=== PATIENT | female | born 1955 | race Caucasian/White ===

== ENCOUNTER 2019-08-07 12:16 | Observation (INO) | payer MEDICARE ==
[2019-08-07 13:13] LABS: Basophils # (A) 0.1 k/uL (0-0.2); Basophils % (A) 1 %; Eosinophils # (A) 0.2 k/uL (0-0.7); Eosinophils % (A) 2 %; HCT 37.5 % (34.0-46.0); HGB 12.1 gm/dL (11.4-16.0); Hypochromasia Slight; Lymphocytes # (A) 2.4 k/uL (1.0-4.8); Lymphocytes % (A) 29 %; MCH 26.6 pg (25.0-35.0); MCHC 32.3 g/dL (31.0-37.0); MCV 82.3 fL (80.0-100.0); Monocytes # (A) 0.4 k/uL (0-1.0); Monocytes % (A) 4 %; Neutrophils # (A) 5.1 k/uL (1.3-7.7); Neutrophils % (A) 62 %; Platelet Count 450 k/uL (150-450); RBC 4.55 m/uL (3.80-5.40); RDW 15.1 % (11.5-15.5); WBC 8.3 k/uL (3.8-10.6)
--- NOTE | 2019-08-07 13:20 | XR ---
EXAMINATION TYPE: XR chest 2V DATE OF EXAM: 08/07/2019 COMPARISON: NONE HISTORY: Chest pain. TECHNIQUE: Frontal and lateral views of the chest are obtained. FINDINGS: Overlying EKG leads. Slightly elevated anterior aspect right hemidiaphragm. There is no foc al air space opacity, pleural effusion, or pneumothorax seen. The cardiac silhouette size is within normal limits. Cholecystectomy clips are noted. The osseous structures are intact. IMPRESSION: No acute process identified.
[2019-08-07 13:24] LABS: African American GFR (CKD) >90 (>60 ml/min/1.73 sqM); Albumin 4.7 g/dL (3.5-5.0); Anion Gap 12 mmol/L; Blood Urea Nitrogen 14 mg/dL (7-17); Calcium 10.3 mg/dL (8.4-10.2); Carbon Dioxide 26 mmol/L (22-30); Chloride 97 mmol/L (98-107); Glucose 178 mg/dL (74-99); Magnesium 1.8 mg/dL (1.6-2.3); Non-African American GFR(CKD) >90 (>60 ml/min/1.73 sqM); Sodium 135 mmol/L (137-145); Total Bilirubin 0.5 mg/dL (0.2-1.3); Total Protein 7.3 g/dL (6.3-8.2)
[2019-08-07 13:25] LABS: ALT 21 U/L (9-52); AST 30 U/L (14-36); Potassium 4.3 mmol/L (3.5-5.1)
[2019-08-07 13:26] LABS: Alkaline Phosphatase 76 U/L (38-126)
--- NOTE | 2019-08-07 13:33 | ED ---
General Adult HPI - General Chief complaint: Chest Pain Stated complaint: chest pain Time Seen by Provider: 08/07/19 12:30 Source: patient, RN notes reviewed, old records reviewed Mode of arrival: wheelchair Limitations: no limitations - History of Present Illness Initial comments: 63-year-old female presents for evaluation of anterior chest pain. Pain is been present since 1 AM. Patient reports a history of fibromyalgia and states that when the weather changes she does get diffuse pain including chest pain. She is here with concerns that this may be fibromyalgia versus her heart. She denies dyspnea. Denies cough. Denies abdominal pain nausea vomiting or diaphoresis. She does report some pain between her scapula. She has a history of diabetes, no history of hypertension. Pain is been constant since 1 AM this morning she seeking medical attention at 12:30. She is a nonsmoker. She does have a family history of coronary artery disease including a mother at age 45. - Related Data Home Medications Medication Instructions Recorded Confirmed ALPRAZolam [ALPRAZolam XR] 1 mg PO DIRECTED 02/17/16 02/17/16 Amitriptyline HCl [Elavil] 50 mg PO HS 02/17/16 02/17/16 Atorvastatin [Lipitor] 40 mg PO DAILY 02/17/16 02/17/16 Cetirizine HCl [Zyrtec Chewable] 10 mg PO DAILY 02/17/16 02/17/16 Citalopram Hydrobromide [CeleXA] 20 mg PO DAILY 02/17/16 02/17/16 Fluticasone Nasal [place] [Flonase 1 nsinhaler INHALATION DIRECTED 02/17/16 02/17/16 Nasal [place]] Gabapentin [Neurontin] 300 mg PO TID 02/17/16 02/17/16 HYDROcodone/APAP 5-325MG [[place] 1 tab PO BID 02/17/16 02/17/16 5-325] Hydrochlorothiazide 12.5 mg PO DAILY 02/17/16 02/17/16 Levothyroxine Sodium [Synthroid] 50 mcg PO DAILY 02/17/16 02/17/16 metFORMIN HCL [Glucophage] 500 mg PO BID 02/17/16 02/17/16 Allergies Allergy/AdvReac Type Severity Reaction Status Date / Time No Known Allergies Allergy Unverified 02/17/16 09:31 Review of Systems ROS Statement: Those systems with pertinent positive or pertinent negative responses have been documented in the HPI. ROS Other: All systems not noted in ROS Statement are negative. Past Medical History Past Medical History: Diabetes Mellitus, Fibromyalgia, Hyperlipidemia, Thyroid Disorder Additional Past Medical History / Comment(s): HERNIATED DISC IN NECK AND BACK FATTY LIVER NEUROPATHY History of Any Multi-Drug Resistant Organisms: None Reported Past Surgical History: Appendectomy, Hysterectomy, Tonsillectomy Additional Past Surgical History / Comment(s): LEFT WRIST SURGERY BILATERAL ELBOW SURGERY BREAST SURGERY Past Anesthesia/Blood Transfusion Reactions: No Reported Reaction Past Psychological History: Anxiety Smoking Status: Never smoker Past Alcohol Use History: None Reported Past Drug Use History: None Reported General Exam Limitations: no limitations General appearance: alert, in no apparent distress Head exam: Present: atraumatic, normocephalic Eye exam: Present: normal appearance, PERRL ENT exam: Present: normal exam Neck exam: Present: normal inspection. Absent: tenderness, meningismus Respiratory exam: Present: normal lung sounds bilaterally. Absent: respiratory distress, wheezes Cardiovascular Exam: Present: regular rate, normal rhythm GI/Abdominal exam: Present: soft. Absent: distended, tenderness Extremities exam: Present: normal inspection, normal capillary refill. Absent: pedal edema Neurological exam: Present: alert, oriented X3 Psychiatric exam: Present: normal affect, normal mood Skin exam: Present: warm, dry, intact. Absent: cyanosis, diaphoretic Course Vital Signs 08/07/19 12:18 Temperature 98.0 F Pulse Rate 74 Respiratory 18 Rate Blood Pressure 115/64 O2 Sat by Pulse 99 Oximetry EKG Findings - EKG Comments: EKG Findings:: EKG: Normal sinus rhythm, voltage criteria for LVH age undetermined possible anterior infarct, no ST segment elevation, rate of 98, HI interval 176, QRS duration 82, QTC 428. Medical Decision Making - Medical Decision Making 63-year-old female presenting with anterior chest pain. Pain has mostly atypical features. Patient's has EKG which is sinus rhythm with no ST segment elevation. She has normal CBC, normal CMP, d-dimer and troponin are both negative. Chest x-ray negative for acute cardiac pulmonary disease. Patient has significant risk factors including diabetes and a strong family history in her mother of coronary artery disease in her early 40s. Given her risk factor she will be kept in observation for serial cardiac enzymes, telemetry, and cardiology consultation. Case is discussed with the admitting physician Dr. Olsen - Lab Data Result diagrams: 08/07/19 12:59 08/07/19 12:59 Lab Results 08/07/19 08/07/19 08/07/19 Range/Units 12:59 12:59 12:59 WBC 8.3 (3.8-10.6) k/uL RBC 4.55 (3.80-5.40) m/uL Hgb 12.1 (11.4-16.0) gm/dL Hct 37.5 (34.0-46.0) % MCV 82.3 (80.0-100.0) fL MCH 26.6 (25.0-35.0) pg MCHC 32.3 (31.0-37.0) g/dL RDW 15.1 (11.5-15.5) % Plt Count 450 (150-450) k/uL Neutrophils % 62 % Lymphocytes % 29 % Monocytes % 4 % Eosinophils % 2 % Basophils % 1 % Neutrophils # 5.1 (1.3-7.7) k/uL Lymphocytes # 2.4 (1.0-4.8) k/uL Monocytes # 0.4 (0-1.0) k/uL Eosinophils # 0.2 (0-0.7) k/uL Basophils # 0.1 (0-0.2) k/uL Hypochromasia Slight PT 9.6 (9.0-12.0) sec INR 0.9 (<1.2) APTT 22.4 (22.0-30.0) sec D-Dimer 0.34 (<0.60) mg/L FEU Sodium 135 L (137-145) mmol/L Potassium 4.3 (3.5-5.1) mmol/L Chloride 97 L (98-107) mmol/L Carbon Dioxide 26 (22-30) mmol/L Anion Gap 12 mmol/L BUN 14 (7-17) mg/dL Creatinine 0.66 (0.52-1.04) mg/dL Est GFR (CKD-EPI)AfAm >90 (>60 ml/min/1.73 sqM) Est GFR (CKD-EPI)NonAf >90 (>60 ml/min/1.73 sqM) Glucose 178 H (74-99) mg/dL Calcium 10.3 H (8.4-10.2) mg/dL Magnesium 1.8 (1.6-2.3) mg/dL Total Bilirubin 0.5 (0.2-1.3) mg/dL AST 30 (14-36) U/L ALT 21 (9-52) U/L Alkaline Phosphatase 76 (38-126) U/L Troponin I (0.000-0.034) ng/mL Total Protein 7.3 (6.3-8.2) g/dL Albumin 4.7 (3.5-5.0) g/dL 08/07/19 Range/Units 12:59 WBC (3.8-10.6) k/uL RBC (3.80-5.40) m/uL Hgb (11.4-16.0) gm/dL Hct (34.0-46.0) % MCV (80.0-100.0) fL MCH (25.0-35.0) pg MCHC (31.0-37.0) g/dL RDW (11.5-15.5) % Plt Count (150-450) k/uL Neutrophils % % Lymphocytes % % Monocytes % % Eosinophils % % Basophils % % Neutrophils # (1.3-7.7) k/uL Lymphocytes # (1.0-4.8) k/uL Monocytes # (0-1.0) k/uL Eosinophils # (0-0.7) k/uL Basophils # (0-0.2) k/uL Hypochromasia PT (9.0-12.0) sec INR (<1.2) APTT (22.0-30.0) sec D-Dimer (<0.60) mg/L FEU Sodium (137-145) mmol/L Potassium (3.5-5.1) mmol/L Chloride (98-107) mmol/L Carbon Dioxide (22-30) mmol/L Anion Gap mmol/L BUN (7-17) mg/dL Creatinine (0.52-1.04) mg/dL Est GFR (CKD-EPI)AfAm (>60 ml/min/1.73 sqM) Est GFR (CKD-EPI)NonAf (>60 ml/min/1.73 sqM) Glucose (74-99) mg/dL Calcium (8.4-10.2) mg/dL Magnesium (1.6-2.3) mg/dL Total Bilirubin (0.2-1.3) mg/dL AST (14-36) U/L ALT (9-52) U/L Alkaline Phosphatase (38-126) U/L Troponin I <0.012 (0.000-0.034) ng/mL Total Protein (6.3-8.2) g/dL Albumin (3.5-5.0) g/dL Disposition Clinical Impression: Chest pain Disposition: ADMITTED IP TO THIS HOSP Condition: Stable Is patient prescribed a controlled substance at d/c from ED?: No Referrals: Nilton Davis DO [Primary Care Provider] - 1-2 days Decision to Admit Reason: Admit from EC Decision Date: 08/07/19 Decision Time: 14:12
[2019-08-07 13:39] LABS: D-Dimer 0.34 mg/L FEU (<0.60); INR 0.9 (<1.2); Partial Thromboplastin Time 22.4 sec (22.0-30.0); Prothrombin Time 9.6 sec (9.0-12.0)
[2019-08-07] MEDS ORDERED: ASPIRIN 325 MG TAB PO STA (14:06)
[2019-08-07] MEDS ORDERED: MORPHINE SULFATE 4 MG/ML SYRINGE IVP STA (14:06)
[2019-08-07] MEDS ORDERED: ONDANSETRON 4 MG/2 ML VIAL IVP PRN (14:07)
[2019-08-07] MEDS ORDERED: NALOXONE 0.4 MG/ML 1 ML VIAL IV PRN (14:07)
[2019-08-07] MEDS ORDERED: ACETAMINOPHEN TAB 325 MG TAB PO PRN (14:07)
[2019-08-07] MEDS ORDERED: NITROGLYCERIN SL TABS 0.4 MG TAB SUBLINGUAL PRN (14:08)
[2019-08-07 20:19] LABS: Glucose,Whole Blood 178 mg/dL (75-99)
[2019-08-07] MEDS: metFORMIN 500 MG TAB PO SCH (20:56)
[2019-08-07] MEDS: GABAPENTIN 400 MG CAP PO SCH (20:56)
[2019-08-07] MEDS: ATORVASTATIN 40 MG TAB PO SCH (20:57)
[2019-08-07] MEDS ORDERED: MELOXICAM 7.5 MG TAB PO SCH (21:00)
[2019-08-07] MEDS: MORPHINE SULFATE 4 MG/ML SYRINGE IV PRN (22:17)
[2019-08-08] MEDS: LEVOTHYROXINE 50 MCG TAB PO SCH (06:27)
[2019-08-08 07:52] LABS: Glucose,Whole Blood 104 mg/dL (75-99)
[2019-08-08] MEDS: MORPHINE SULFATE 4 MG/ML SYRINGE IV PRN (07:56)
--- NOTE | 2019-08-08 11:04 | P.CRDCN ---
History of Present Illness Consult date: 08/08/19 Chief complaint: Chest pain History of present illness: This is a pleasant 63-year-old female patient with a past medical history significant for diabetes as well as significant family history of coronary artery disease presented to the hospital complaining of chest discomfort. The patient was in her usual state of health until yesterday when she was sleeping and woke up from sleep complaining of discomfort in the mid of the chest, with some radiation to the back, without any radiation to the arm or neck or shoulders, and without any associated symptoms of shortness of breath, nausea, sweating, or syncope. Because of that she decided to come to the hospital. She stated that she was given morphine with significant improvement in her symptoms. The EKG showed sinus rhythm without any ST or T-wave abnormalities concerning for ischemia. The cardiac enzymes were checked and came in to be unremarkable. The chest x-ray did not show any acute abnormalities. The d-dimer was checked and came in to be unremarkable. In 2015, the patient was admitted with a chest discomfort and at that point she underwent myocardial perfusion imaging stress test and that came in to be unremarkable. I had a long discussion with the patient regarding the next step. I advised the patient that she to undergo a stress test to rule out severe underlying coronary artery disease. Today is a Thanks[place] day. Also we checked and with, post stress test tomorrow. I am going to observe the patient overnight and follow-up with her tomorrow morning. The reason is she still have mild ongoing chest discomfort. If the chest discomfort is resolved by tomorrow the patient can be discharged home and I will follow-up with the patient as an outpatient. Past Medical History Past Medical History: Diabetes Mellitus, Fibromyalgia, Hyperlipidemia, Thyroid Disorder Additional Past Medical History / Comment(s): HERNIATED DISC IN NECK AND BACK FATTY LIVER NEUROPATHY History of Any Multi-Drug Resistant Organisms: MRSA Date of last positivie culture/infection: 2007 MDRO Source:: face Past Surgical History: Appendectomy, Hysterectomy, Tonsillectomy Additional Past Surgical History / Comment(s): LEFT WRIST SURGERY BILATERAL ELBOW SURGERY BREAST SURGERY Past Anesthesia/Blood Transfusion Reactions: No Reported Reaction Past Psychological History: Anxiety, Depression Smoking Status: Never smoker Past Alcohol Use History: None Reported Past Drug Use History: None Reported - Past Family History Mother Family Medical History: Myocardial Infarction ([place]) Additional Family Medical History / Comment(s): at age 45 Medications and Allergies Home Medications Medication Instructions Recorded Confirmed Type Atorvastatin [Lipitor] 40 mg PO HS 02/17/16 08/07/19 History Hydrochlorothiazide 12.5 mg PO DAILY 02/17/16 08/07/19 History Levothyroxine Sodium [Synthroid] 50 mcg PO DAILY 02/17/16 08/07/19 History ALPRAZolam [Xanax] 1 mg PO HS PRN 08/07/19 08/07/19 History DULoxetine HCL [Cymbalta] 60 mg PO DAILY 08/07/19 08/07/19 History Esomeprazole Magnesium [NexIUM] 20 mg PO DAILY 08/07/19 08/07/19 History Gabapentin 800 mg PO TID 08/07/19 08/07/19 History Meloxicam [Mobic] 7.5 mg PO BID 08/07/19 08/07/19 History metFORMIN HCL 1,000 mg PO BID 08/07/19 08/07/19 History Allergies Allergy/AdvReac Type Severity Reaction Status Date / Time No Known Allergies Allergy Verified 08/07/19 14:36 Physical Exam Vitals: Vital Signs Temp Pulse Pulse Pulse Resp BP BP 08/08/19 08:57 98.2 F 84 18 146/86 08/08/19 04:00 98.0 F 91 17 112/81 08/07/19 23:22 98.4 F 92 16 114/73 08/07/19 16:31 97.4 F L 92 147/83 08/07/19 16:00 93 16 132/86 08/07/19 15:05 92 16 146/86 08/07/19 13:01 98 27 H 153/97 08/07/19 12:41 103 H 19 08/07/19 12:18 98.0 F 74 18 115/64 Pulse Ox 08/08/19 08:57 99 08/08/19 04:00 08/07/19 23:22 98 08/07/19 16:31 98 08/07/19 16:00 93 L 08/07/19 15:05 94 L 08/07/19 13:01 96 08/07/19 12:41 08/07/19 12:18 99 Intake and Output 08/07/19 08/08/19 08/08/19 22:59 06:59 14:59 Other: Voiding Method Toilet Toilet Toilet # Voids 2 1 Weight 94.347 kg Results 08/07/19 12:59 08/07/19 12:59 Cardiac Enzymes 08/07/19 08/07/19 08/07/19 Range/Units 12:59 12:59 19:13 AST 30 (14-36) U/L Troponin I <0.012 <0.012 (0.000-0.034) ng/mL 08/08/19 Range/Units 00:35 AST (14-36) U/L Troponin I <0.012 (0.000-0.034) ng/mL Coagulation 08/07/19 Range/Units 12:59 PT 9.6 (9.0-12.0) sec APTT 22.4 (22.0-30.0) sec CBC 08/07/19 Range/Units 12:59 WBC 8.3 (3.8-10.6) k/uL RBC 4.55 (3.80-5.40) m/uL Hgb 12.1 (11.4-16.0) gm/dL Hct 37.5 (34.0-46.0) % Plt Count 450 (150-450) k/uL Comprehensive Metabolic Panel 08/07/19 Range/Units 12:59 Sodium 135 L (137-145) mmol/L Potassium 4.3 (3.5-5.1) mmol/L Chloride 97 L (98-107) mmol/L Carbon Dioxide 26 (22-30) mmol/L BUN 14 (7-17) mg/dL Creatinine 0.66 (0.52-1.04) mg/dL Glucose 178 H (74-99) mg/dL Calcium 10.3 H (8.4-10.2) mg/dL AST 30 (14-36) U/L ALT 21 (9-52) U/L Alkaline Phosphatase 76 (38-126) U/L Total Protein 7.3 (6.3-8.2) g/dL Albumin 4.7 (3.5-5.0) g/dL Current Medications Generic Name Dose Route Start Last Admin Trade Name Freq PRN Reason Stop Dose Admin Acetaminophen 650 mg 08/07/19 14:07 Tylenol Tab PO Q6HR PRN Mild Pain or Fever > 100.5 Alprazolam 1 mg 11/27/19 18:45 Xanax PO HS PRN Anxiety Aspirin 325 mg 08/08/19 09:00 Aspirin PO DAILY [facility] Atorvastatin Calcium 40 mg 08/07/19 21:00 08/07/19 20:57 Lipitor PO 40 mg HS ANDREINA Administration Duloxetine HCl 60 mg 08/08/19 09:00 Cymbalta PO DAILY [facility] Gabapentin 800 mg 08/07/19 22:00 08/07/19 20:56 Neurontin PO 800 mg TID ANDREINA Administration Hydrochlorothiazide 12.5 mg 08/08/19 09:00 Hydrodiuril PO DAILY [facility] Levothyroxine Sodium 50 mcg 08/08/19 06:30 08/08/19 06:27 Synthroid PO 50 mcg 0630 ANDREINA Administration Metformin HCl 1,000 mg 08/07/19 21:00 08/07/19 20:56 Glucophage PO 1,000 mg BID ANDREINA Administration Morphine Sulfate 4 mg 08/07/19 14:07 08/08/19 07:56 Morphine Sulfate (Inj) IV 4 mg Q4HR PRN Administration Severe Pain Naloxone HCl 0.2 mg 08/07/19 14:07 Narcan IV Q2M PRN Opioid Reversal Nitroglycerin 0.4 mg 08/07/19 14:08 Nitrostat SUBLINGUAL Q5M PRN Chest Pain Ondansetron HCl 4 mg 08/07/19 14:07 Zofran IVP Q8HR PRN Nausea And Vomiting Pantoprazole Sodium 40 mg 08/08/19 07:30 Protonix PO AC-[id number] ANDREINA Intake and Output 08/07/19 08/08/19 08/08/19 22:59 06:59 14:59 Other: Voiding Method Toilet Toilet Toilet # Voids 2 1 Weight 94.347 kg 08/07/19 12:59 08/07/19 12:59 Assessment and Plan Assessment: Assessment #1 atypical chest pain #2 diabetes Plan #1 pulmonary embolism was ruled out #2 acute coronary syndrome was ruled out #3 severe underlying coronary artery disease to be ruled out #4 I am going to monitor the patient overnight because she continues to have mild ongoing chest discomfort #5 follow-up with the patient Thank you for allowing us participate in her care
[2019-08-08] MEDS: metFORMIN 500 MG TAB PO SCH ×2 (11:08→21:21)
[2019-08-08] MEDS: GABAPENTIN 400 MG CAP PO SCH ×3 (11:09→21:21)
[2019-08-08] MEDS: DULoxetine HCL 60 MG CAPSULE.DR PO SCH (11:09)
[2019-08-08] MEDS: PANTOPRAZOLE 40 MG TABLET PO SCH (11:09)
[2019-08-08] MEDS: ASPIRIN 325 MG TAB PO SCH (11:09)
[2019-08-08] MEDS: HYDROCHLOROTHIAZIDE 12.5 MG CAP PO SCH (11:09)
[2019-08-08 12:22] LABS: Glucose,Whole Blood 144 mg/dL (75-99)
--- NOTE | 2019-08-08 15:18 | P.HPIM ---
History of Present Illness H&P Date: 08/08/19 Chief Complaint: Chest pain History of presenting complaint: This is a pleasant 62-year-old patient of Dr. Davis. Chronic stable medical conditions include diabetes mellitus type 2, fibromyalgia, hyperlipidemia, hypothyroid, herniated disc in the neck, fatty liver, neuropathy. Patient on one started off with pain across the chest did not radiate to the neck. There was no associated dizziness, lightheadedness, perspiration, or shortness of breath. On pushing the chest pain is reproducible patient states that. Given her family history she decided to come in to rule out a cardiac cause. Denies any prior cardiac history. Review of systems: GEN.: None EYES: None HEENT: None NECK: Chronic neck pain RESPIRATORY: None CARDIOVASCULAR: As above] GASTROINTESTINAL: None GENITOURINARY: None MUSCULOSKELETAL: . When he joints LYMPHATICS: None HEMATOLOGICAL: None PSYCHIATRY: Some anxiety NEUROLOGICAL: None Social history: Does not smoke or drink alcohol. . Family history: Positive for coronary artery disease Physical examination: VITAL SIGNS: 98, 74, 18, 11 5/64, 79% room air GENERAL: 35.7, sitting up in bed, not in distress. EYES: Pupils equal. Conjunctiva normal. HEENT: External appearance of nose and ears normal, oral cavity grossly normal. NECK: JVD not raised; masses not palpable. HEART: First and second heart sounds are normal; no edema. LUNGS: Respiratory rate normal; clear to auscultation. ABDOMEN: Soft, nontender, liver spleen not palpable, no masses palpable. PSYCH: Alert and oriented x3; mood and affect normal. NEUROLOGICAL: Cranial nerves grossly intact; no facial asymmetry, power and sensation grossly intact. LYMPHATICS: No lymph nodes palpable in the axilla and neck CHEST wall: Reproducible anterior chest wall tenderness MUSCULOSKELETAL: Evidence of early OA in the hands INVESTIGATIONS, reviewed in the clinical context: White count 8.3 hemoglobin 12.1 platelets 450 progression 4.3 creatinine 0.66 Troponin I 3 negative EKG tracing personally reviewed by me-poor R-wave progression anterior leads and nonspecific questionable ST segment changes Chest x-ray film personally reviewed by me shows-possible right diaphragmatic elevation Assessment: -Anterior chest wall pain somewhat atypical and pain is reproducible. Given the risk factors will need to have a stress test. -Diabetes mellitus type II -Chronic fibromyalgia -Hyperlipidemia -Hypothyroid -Hepatic steatosis -Diabetic peripheral neuropathy -Primary osteoarthritis -Rule out right diaphragmatic paralysis Plan: -Home medications resumed. Cardiology was consulted. Serial cardiac enzymes are negative. Patient will need a stress test. We'll let cardiology determined the same. Also ordered fluoroscopy sniff test for possible right diaphragm paralysis. Past Medical History Past Medical History: Diabetes Mellitus, Fibromyalgia, Hyperlipidemia, Thyroid Disorder Additional Past Medical History / Comment(s): HERNIATED DISC IN NECK AND BACK FATTY LIVER NEUROPATHY History of Any Multi-Drug Resistant Organisms: MRSA Date of last positivie culture/infection: 2007 MDRO Source:: face Past Surgical History: Appendectomy, Hysterectomy, Tonsillectomy Additional Past Surgical History / Comment(s): LEFT WRIST SURGERY BILATERAL ELBOW SURGERY BREAST SURGERY Past Anesthesia/Blood Transfusion Reactions: No Reported Reaction Past Psychological History: Anxiety, Depression Smoking Status: Never smoker Past Alcohol Use History: None Reported Past Drug Use History: None Reported - Past Family History Mother Family Medical History: Myocardial Infarction ([place]) Additional Family Medical History / Comment(s): at age 45 Medications and Allergies Home Medications Medication Instructions Recorded Confirmed Type Atorvastatin [Lipitor] 40 mg PO HS 02/17/16 08/07/19 History Hydrochlorothiazide 12.5 mg PO DAILY 02/17/16 08/07/19 History Levothyroxine Sodium [Synthroid] 50 mcg PO DAILY 02/17/16 08/07/19 History ALPRAZolam [Xanax] 1 mg PO HS PRN 08/07/19 08/07/19 History DULoxetine HCL [Cymbalta] 60 mg PO DAILY 08/07/19 08/07/19 History Esomeprazole Magnesium [NexIUM] 20 mg PO DAILY 08/07/19 08/07/19 History Gabapentin 800 mg PO TID 08/07/19 08/07/19 History Meloxicam [Mobic] 7.5 mg PO BID 08/07/19 08/07/19 History metFORMIN HCL 1,000 mg PO BID 08/07/19 08/07/19 History Allergies Allergy/AdvReac Type Severity Reaction Status Date / Time No Known Allergies Allergy Verified 08/07/19 14:36 Physical Exam Vitals: Vital Signs Temp Pulse Pulse Pulse Resp BP BP 08/08/19 08:57 98.2 F 84 18 146/86 08/08/19 04:00 98.0 F 91 17 112/81 08/07/19 23:22 98.4 F 92 16 114/73 08/07/19 16:31 97.4 F L 92 147/83 08/07/19 16:00 93 16 132/86 08/07/19 15:05 92 16 146/86 08/07/19 13:01 98 27 H 153/97 08/07/19 12:41 103 H 19 08/07/19 12:18 98.0 F 74 18 115/64 Pulse Ox 08/08/19 08:57 99 08/08/19 04:00 08/07/19 23:22 98 08/07/19 16:31 98 08/07/19 16:00 93 L 08/07/19 15:05 94 L 08/07/19 13:01 96 08/07/19 12:41 08/07/19 12:18 99 Intake and Output 08/07/19 08/08/19 08/08/19 22:59 06:59 14:59 Other: Voiding Method Toilet Toilet Toilet # Voids 2 1 Weight 94.347 kg Results CBC & Chem 7: 08/07/19 12:59 08/07/19 12:59 Labs: Abnormal Lab Results - Last 24 Hours (Table) 08/07/19 08/07/19 08/08/19 Range/Units 12:59 20:18 07:51 Sodium 135 L (137-145) mmol/L Chloride 97 L (98-107) mmol/L Glucose 178 H (74-99) mg/dL POC Glucose (mg/dL) 178 H 104 H (75-99) mg/dL Calcium 10.3 H (8.4-10.2) mg/dL Thrombosis Risk Factor Assmnt - Choose All That Apply Any of the Below Risk Factors Present?: Yes Each Factor Represents 1 point: Obesity (BMI >25) Other Risk Factors: Yes Each Risk Factor Represents 2 Points: Age 61-74 years Thrombosis Risk Factor Assessment Total Risk Factor Score: 3 Thrombosis Risk Factor Assessment Level: Moderate Risk
[2019-08-08 17:07] LABS: Glucose,Whole Blood 74 mg/dL (75-99)
[2019-08-08 20:21] LABS: Glucose,Whole Blood 124 mg/dL (75-99)
[2019-08-08] MEDS: ALPRAZolam 1 MG TAB PO PRN (21:21)
[2019-08-08] MEDS: ATORVASTATIN 40 MG TAB PO SCH (21:21)
[2019-08-09] MEDS: LEVOTHYROXINE 50 MCG TAB PO SCH (06:00)
[2019-08-09 06:42] LABS: Glucose,Whole Blood 83 mg/dL (75-99)
--- NOTE | 2019-08-09 08:19 | FL ---
EXAMINATION TYPE: [place] sniff test without CXR DATE OF EXAM: 08/09/2019 COMPARISON: Chest x-ray 2 days ago. HISTORY: Fall injury 1.5 years ago with rib fractures, possible diaphragm paralysis. Abnormal x-ray w ith elevated diaphragm. TECHNIQUE: Fluoroscopic assisted sniff test. A total 0.1 minutes of fluoroscopic time was utilized. 2 9 spot images saved to PACS. FINDINGS: Right hemidiaphragm is roughly 1-0.5 rib space above the left hemidiaphragm which is within normal limits. During dynamic rapid inspiration and expiration there is symmetric satisfactory motio n to both diaphragms without paradoxical motion or paralysis. IMPRESSION: No hemidiaphragm paralysis.
[2019-08-09] MEDS: HYDROCHLOROTHIAZIDE 12.5 MG CAP PO SCH (09:04)
[2019-08-09] MEDS: ASPIRIN 325 MG TAB PO SCH (09:04)
[2019-08-09] MEDS: MORPHINE SULFATE 4 MG/ML SYRINGE IV PRN (09:04)
[2019-08-09] MEDS: GABAPENTIN 400 MG CAP PO SCH ×3 (09:04→21:23)
[2019-08-09] MEDS: metFORMIN 500 MG TAB PO SCH ×2 (09:04→23:17)
[2019-08-09] MEDS: DULoxetine HCL 60 MG CAPSULE.DR PO SCH (09:04)
[2019-08-09] MEDS: PANTOPRAZOLE 40 MG TABLET PO SCH (09:04)
[2019-08-09 11:48] LABS: Glucose,Whole Blood 91 mg/dL (75-99)
--- NOTE | 2019-08-09 11:48 | P.PN ---
Subjective Progress Note Date: 08/09/19 Principal diagnosis: Chest pain This is a pleasant 63-year-old female patient with a past medical history significant for diabetes as well as significant family history of coronary artery disease presented to the hospital complaining of chest discomfort. The patient was in her usual state of health until yesterday when she was sleeping and woke up from sleep complaining of discomfort in the mid of the chest, with some radiation to the back, without any radiation to the arm or neck or shoulders, and without any associated symptoms of shortness of breath, nausea, sweating, or syncope. Because of that she decided to come to the hospital. She stated that she was given morphine with significant improvement in her symptoms. The EKG showed sinus rhythm without any ST or T-wave abnormalities concerning for ischemia. The cardiac enzymes were checked and came in to be unremarkable. The chest x-ray did not show any acute abnormalities. The d-dimer was checked and came in to be unremarkable. In 2015, the patient was admitted with a chest discomfort and at that point she underwent myocardial perfusion imaging stress test and that came in to be unremarkable. The patient was seen this morning. She stated that she did have mild chest discomfort earlier today which was result by morphine. She does have history of fibrillation as well. And she has been asking for pain medication once she go home. I did advise the patient to get up and around and if she is asymptomatic she possibly can be discharged home and have a stress test as an outpatient. If she develop any more episode of chest discomfort I would give the patient nitroglycerin this time and not morphine and she possibly to undergo coronary angiogram. Objective - Vital Signs Vital signs: Vital Signs Temp 97.4 F L 08/09/19 11:34 Pulse 76 08/09/19 11:34 Resp 18 08/09/19 11:34 BP 121/76 08/09/19 11:34 Pulse Ox 98 08/09/19 11:34 Intake & Output 08/08/19 08/09/19 08/09/19 18:59 06:59 18:59 Intake Total 440 Balance 440 Intake: Oral 240 Other 200 Other: Voiding Method Toilet Toilet Toilet # Voids 1 1 - Constitutional General appearance: Present: no acute distress - Respiratory Respiratory: bilateral: CTA - Cardiovascular Rhythm: regular Heart sounds: normal: S1, S2 - Labs CBC & Chem 7: 08/07/19 12:59 08/07/19 12:59 Labs: Abnormal Lab Results - Last 24 Hours (Table) 08/08/19 08/08/19 08/08/19 Range/Units 12:21 17:05 20:17 POC Glucose (mg/dL) 144 H 74 L 124 H (75-99) mg/dL Assessment and Plan Assessment: Assessment #1 atypical chest pain #2 diabetes Plan #1 pulmonary embolism was ruled out #2 acute coronary syndrome was ruled out #3 severe underlying coronary artery disease to be ruled out #4 get the patient up and around #5 possible discharge home and have a stress test as an outpatient unless she develops any more episodes of chest pain
[2019-08-09 16:32] LABS: Glucose,Whole Blood 101 mg/dL (75-99)
[2019-08-09 20:04] LABS: Glucose,Whole Blood 119 mg/dL (75-99)
[2019-08-09] MEDS: ALPRAZolam 1 MG TAB PO PRN (21:23)
[2019-08-09] MEDS: ATORVASTATIN 40 MG TAB PO SCH (21:23)
--- NOTE | 2019-08-09 22:42 | P.PN ---
Progress Note - Text Progress Note Date: 08/09/19 Chief Complaint: Chest pain Interval history: This is a pleasant 62-year-old patient of Dr. Davis. Chronic stable medical conditions include diabetes mellitus type 2, fibromyalgia, hyperlipidemia, hypothyroid, herniated disc in the neck, fatty liver, neuropathy. Patient on one started off with pain across the chest did not radiate to the neck. There was no associated dizziness, lightheadedness, perspiration, or shortness of breath. On pushing the chest pain is reproducible patient states that. Given her family history she decided to come in to rule out a cardiac cause. Denies any prior cardiac history. Patient presented with diagnosis of anterior chest wall pain. Possibly from fibromyalgia. Angina cannot be ruled out. Today-patient had more episodes of chest pain. Did feel better with nitrate. Awaiting further input from cardiology. Review of systems: Was done for constitutional, cardiovascular, GI, pulmonary. relevant finding as above Active Medications Acetaminophen (Tylenol Tab) 650 mg PO Q6HR PRN PRN Reason: Mild Pain or Fever > 100.5 Last Admin: 08/08/19 12:21 Dose: 650 mg Documented by: Alprazolam (Xanax) 1 mg PO HS PRN PRN Reason: Anxiety Last Admin: 08/09/19 21:23 Dose: 1 mg Documented by: Aspirin (Aspirin) 325 mg PO DAILY [facility] Last Admin: 08/09/19 09:04 Dose: 325 mg Documented by: Atorvastatin Calcium (Lipitor) 40 mg PO HS [facility] Last Admin: 08/09/19 21:23 Dose: 40 mg Documented by: Duloxetine HCl (Cymbalta) 60 mg PO DAILY [facility] Last Admin: 08/09/19 09:04 Dose: 60 mg Documented by: Gabapentin (Neurontin) 800 mg PO TID [facility] Last Admin: 08/09/19 21:23 Dose: 800 mg Documented by: Hydrochlorothiazide (Hydrodiuril) 12.5 mg PO DAILY [facility] Last Admin: 08/09/19 09:04 Dose: 12.5 mg Documented by: Levothyroxine Sodium (Synthroid) 50 mcg PO 0630 [facility] Last Admin: 08/09/19 06:00 Dose: 50 mcg Documented by: Metformin HCl (Glucophage) 1,000 mg PO BID [facility] Last Admin: 08/09/19 09:04 Dose: 1,000 mg Documented by: Morphine Sulfate (Morphine Sulfate (Inj)) 4 mg IV Q4HR PRN PRN Reason: Severe Pain Last Admin: 08/09/19 09:04 Dose: 4 mg Documented by: Naloxone HCl (Narcan) 0.2 mg IV Q2M PRN PRN Reason: Opioid Reversal Nitroglycerin (Nitrostat) 0.4 mg SUBLINGUAL Q5M PRN PRN Reason: Chest Pain Last Admin: 08/09/19 13:42 Dose: 0.4 mg Documented by: Ondansetron HCl (Zofran) 4 mg IVP Q8HR PRN PRN Reason: Nausea And Vomiting Pantoprazole Sodium (Protonix) 40 mg [facility] Last Admin: 08/09/19 09:04 Dose: 40 mg Documented by: Physical examination: VITAL SIGNS: 97.4, 76, 18, 121/76, 98% room air GENERAL: Sitting on bed, comfortable EYES: Pupils equal. Conjunctiva normal. HEENT: External appearance of nose and ears normal, oral cavity grossly normal. NECK: JVD not raised; masses not palpable. HEART: First and second heart sounds are normal; no edema. LUNGS: Respiratory rate normal; clear to auscultation. ABDOMEN: Soft, nontender, liver spleen not palpable, no masses palpable. PSYCH: Alert and oriented x3; mood and affect normal. CHEST wall: Reproducible anterior chest wall tenderness MUSCULOSKELETAL: Evidence of early OA in the hands INVESTIGATIONS, reviewed in the clinical context: Accu-Cheks noted Admitting labs White count 8.3 hemoglobin 12.1 platelets 450 progression 4.3 creatinine 0.66 Troponin I 3 negative EKG tracing personally reviewed by me-poor R-wave progression anterior leads and nonspecific questionable ST segment changes Chest x-ray film personally reviewed by me shows-possible right diaphragmatic elevation Sniff test-negative for diaphragm paralysis Assessment: -Anterior chest wall pain somewhat atypical and pain is reproducible. Given the risk factors will need to have a stress test. -Diabetes mellitus type II -Chronic fibromyalgia -Hyperlipidemia -Hypothyroid -Hepatic steatosis -Diabetic peripheral neuropathy -Primary osteoarthritis -t diaphragmatic paralysis-ruled out. Plan: Continue current medication treatment plan. Awaiting further input from cardiology. Patient will need a stress test. Continues to have intermittent chest pain.
[2019-08-10] MEDS: metFORMIN 500 MG TAB PO SCH (06:17)
[2019-08-10] MEDS: ASPIRIN 325 MG TAB PO SCH (06:56)
[2019-08-10] MEDS: HYDROCHLOROTHIAZIDE 12.5 MG CAP PO SCH (06:56)
[2019-08-10] MEDS: PANTOPRAZOLE 40 MG TABLET PO SCH (06:56)
[2019-08-10] MEDS: DULoxetine HCL 60 MG CAPSULE.DR PO SCH (06:56)
[2019-08-10] MEDS: ATORVASTATIN 40 MG TAB PO SCH (06:56)
[2019-08-10] MEDS: GABAPENTIN 400 MG CAP PO SCH ×2 (06:56→17:04)
[2019-08-10] MEDS: LEVOTHYROXINE 50 MCG TAB PO SCH (06:57)
[2019-08-10 07:15] LABS: Glucose,Whole Blood 94 mg/dL (75-99)
[2019-08-10] MEDS ORDERED: ALPRAZolam 0.25 MG TAB PO PRN (11:31)
[2019-08-10] MEDS ORDERED: ATORVASTATIN 80 MG TAB PO STA (11:31)
[2019-08-10] MEDS ORDERED: SODIUM CHLORIDE 0.9% 1,000 ML in EMPTY BAG 1 BAG IV ONE (11:31)
[2019-08-10 11:46] VITALS: TEMP 97.8
[2019-08-10 12:00] LABS: Glucose,Whole Blood 97 mg/dL (75-99)
--- NOTE | 2019-08-10 12:27 | P.PN ---
Subjective Progress Note Date: 08/10/19 Principal diagnosis: Chest pain This is a pleasant 63-year-old female patient with a past medical history significant for diabetes as well as significant family history of coronary artery disease presented to the hospital complaining of chest discomfort. The patient was in her usual state of health until yesterday when she was sleeping and woke up from sleep complaining of discomfort in the mid of the chest, with some radiation to the back, without any radiation to the arm or neck or shoulders, and without any associated symptoms of shortness of breath, nausea, sweating, or syncope. Because of that she decided to come to the hospital. She stated that she was given morphine with significant improvement in her symptoms. The EKG showed sinus rhythm without any ST or T-wave abnormalities concerning for ischemia. The cardiac enzymes were checked and came in to be unremarkable. The chest x-ray did not show any acute abnormalities. The d-dimer was checked and came in to be unremarkable. In 2015, the patient was admitted with a chest discomfort and at that point she underwent myocardial perfusion imaging stress test and that came in to be unremarkable. The patient was seen today. The last time she had a chest discomfort last night when she was given nitroglycerin with improvement in her chest pain. She is going to undergo a coronary angiogram later on today Objective - Vital Signs Vital signs: Vital Signs Temp 97.8 F 08/10/19 11:45 Pulse 92 08/10/19 11:45 Resp 18 08/10/19 08:00 BP 131/85 08/10/19 11:45 Pulse Ox 97 08/10/19 11:45 Intake & Output 08/09/19 08/10/19 08/10/19 18:59 06:59 18:59 Intake Total 1300 Balance 1300 Intake: Oral 900 Other 400 Other: Voiding Method Toilet Toilet Toilet # Voids 2 1 - Constitutional General appearance: Present: no acute distress - Respiratory Respiratory: bilateral: CTA - Cardiovascular Rhythm: regular Heart sounds: normal: S1, S2 - Labs CBC & Chem 7: 08/07/19 12:59 08/07/19 12:59 Labs: Abnormal Lab Results - Last 24 Hours (Table) 08/09/19 08/09/19 Range/Units 16:27 19:59 POC Glucose (mg/dL) 101 H 119 H (75-99) mg/dL Assessment and Plan Assessment: Assessment #1 atypical chest pain #2 diabetes Plan #1 pulmonary embolism was ruled out #2 acute coronary syndrome was ruled out #3 severe underlying coronary artery disease to be ruled out #4 the patient is going to undergo coronary angiogram later on today
[2019-08-10] MEDS ORDERED: IV FLUID CONTINUATION 500 ML IV ONE (12:44)
[2019-08-10] MEDS ORDERED: HEPARIN SODIUM 1,000 UN/ML (10ML VL) ONE (12:50)
[2019-08-10] MEDS ORDERED: VERAPAMIL 2.5 MG/ML 2 ML AMP ONE (12:50)
[2019-08-10] MEDS ORDERED: LIDOCAINE 1% INJ 10MG/ML (20 ML MDV) ONE (12:50)
[2019-08-10] MEDS ORDERED: LIDOCAINE 1% INJ 10MG/ML (20 ML MDV) SQ ONE (13:06)
[2019-08-10] MEDS ORDERED: MIDAZOLAM 2 MG/2 ML VIAL IVP ONE (13:06)
[2019-08-10] MEDS: VERAPAMIL SYRINGE (5 MG/10 ML) INTRAARTER ONE ×2 (13:08→13:17)
[2019-08-10] MEDS ORDERED: HEPARIN SODIUM 1,000 UN/ML (10ML VL) IV ONE (13:10)
[2019-08-10] MEDS ORDERED: IOPAMIDOL-370 100ML BTL INJ ONE (13:17)
[2019-08-10] MEDS ORDERED: RX INFO: IV CONTRAST WAS GIVEN 1 EACH MISC MISCELLANE PRN (13:21)
[2019-08-10] MEDS ORDERED: SODIUM CHLORIDE 0.9% 1,000 ML IV SCH (13:30)
--- NOTE | 2019-08-10 13:48 | CC ---
CARDIAC CATHETERIZATION REPORT DATE OF SERVICE: 08/10/2019 PERFORMING PHYSICIAN: Raoul Zarate MD. PROCEDURES PERFORMED: 1. Selective right and left coronary angiogram. 2. Left heart catheterization. INDICATION: This is a 64-year-old female patient with hypertension, dyslipidemia and diabetes who presented to the hospital with chest discomfort and continues to have ongoing chest discomfort. Because of that, a heart catheterization was advised. APPROACH: Right radial artery. COMPLICATIONS: None. LEVEL OF SEDATION: Moderate, with sedation length of 15 minutes. PROCEDURE DESCRIPTION: After obtaining informed consent, the patient was brought to the cardiac ammunition assembly i laborer. The right radial artery was cannulated using micropuncture technique. The micropuncture wire passed easily. Then I placed a 6-Maori sheath. I did after that give the patient 2 mg of verapamil IA and 10,000 units of heparin IV. Selective right and left coronary angiogram was performed using JR4 and JL3.5 catheters. After that left heart catheterization was performed using a pigtail catheter. The procedure was completed without any complication. SELECTIVE CORONARY ANGIOGRAM: 1. The right coronary artery is a large-caliber vessel. It is a dominant vessel and appeared to be angiographically normal. It distally bifurcates into PDA and PLV branches. Both appeared to be angiographically normal. 2. The left main is angiographically normal. It bifurcates into LCX, ramus intermedius and LAD. 3. The left circumflex is angiographically normal. 4. The ramus intermedius is angiographically normal. 5. The LAD is angiographically normal. HEMODYNAMICS: The LVEDP was 10 mmHg without significant gradient across the aortic valve. CONCLUSION: 1. Normal coronary angiogram. 2. Normal left ventricular end-diastolic pressure. POST-PROCEDURE MANAGEMENT: Medical treatment. MMODL / IJN: [id number] /
[2019-08-10 13:54] VITALS: RESP 14
--- NOTE | 2019-08-10 15:33 | P.DS ---
Providers Date of admission: 08/09/19 15:12 Expected date of discharge: 08/10/19 Attending physician: Thong Olsen Consults: 08/07/19 14:07 Consult Physician Routine Consulting Provider: Deysi Swartz Consult Reason/Comments: Chest pain rule out Do you want consulting provider notified?: Yes Primary care physician: Nilton Davis [facility] Course: Chief Complaint: Chest pain Hospital course: This is a pleasant 62-year-old patient of Dr. Davis. Chronic stable medical conditions include diabetes mellitus type 2, fibromyalgia, hyperlipidemia, hy pothyroid, herniated disc in the neck, fatty liver, neuropathy. Patient on one started off with pain across the chest did not radiate to the neck. There was no associated dizziness, lightheadedness, perspiration, or shortness of breath. On pushing the chest pain is reproducible patient states that. Given her family history she decided to come in to rule out a cardiac cause. Denies any prior c ardiac history. Patient presented with diagnosis of anterior chest wall pain. Possibly from fibromyalgia. Angina cannot be ruled out. Patient had recurrent chest pain with some help from nitrates. Patient underwent cardiac catheterization today. Found to have normal coronaries. Care was discussed with the patient. Consultation: Dr. Zarate from cardiology Physical examination: VITAL SIGNS: r 97.5, 55, 18, 159/91, 100% room air GENERAL: Sitting on bed, comfortable EYES: Pupils equal. Conjunctiva normal. HEENT: External appearance of nose and ears normal, oral cavity grossly normal. NECK: JVD not raised; masses not palpable. HEART: First and second heart sounds are normal; no edema. LUNGS: Respiratory rate normal; clear to auscultation. ABDOMEN: Soft, nontender, liver spleen not palpable, no masses palpable. PSYCH: Alert and oriented x3; mood and affect normal. CHEST wall: Reproducible anterior chest wall tenderness MUSCULOSKELETAL: Evidence of early OA in the hands INVESTIGATIONS, reviewed in the clinical context: Accu-Cheks noted Admitting labs White count 8.3 hemoglobin 12.1 platelets 450 progression 4.3 creatinine 0.66 Troponin I 3 negative EKG tracing personally reviewed by me-poor R-wave progression anterior leads and nonspecific questionable ST segment changes Chest x-ray film personally reviewed by me shows-possible right diaphragmatic elevation Sniff test-negative for diaphragm paralysis Cardiac catheterization-normal coronaries Assessment: -Anterior chest wall pain, likely from fibromyalgia. -Diabetes mellitus type II -Chronic fibromyalgia -Hyperlipidemia -Hypothyroid -Hepatic steatosis -Diabetic peripheral neuropathy -Primary osteoarthritis - diaphragmatic paralysis-ruled out. Disposition: Home Patient Condition at Discharge: Stable Plan - Discharge Summary New Discharge Prescriptions: New Aspirin 81 mg PO DAILY #30 chewable Continue Levothyroxine Sodium [Synthroid] 50 mcg PO DAILY Hydrochlorothiazide 12.5 mg PO DAILY Atorvastatin [Lipitor] 40 mg PO HS Esomeprazole Magnesium [NexIUM] 20 mg PO DAILY metFORMIN HCL 1,000 mg PO BID Meloxicam [Mobic] 7.5 mg PO BID Gabapentin 800 mg PO TID DULoxetine HCL [Cymbalta] 60 mg PO DAILY ALPRAZolam [Xanax] 1 mg PO HS PRN PRN Reason: Anxiety Discharge Medication List Atorvastatin [Lipitor] 40 mg PO HS 02/17/16 [History] Hydrochlorothiazide 12.5 mg PO DAILY 02/17/16 [History] Levothyroxine Sodium [Synthroid] 50 mcg PO DAILY 02/17/16 [History] ALPRAZolam [Xanax] 1 mg PO HS PRN 08/07/19 [History] DULoxetine HCL [Cymbalta] 60 mg PO DAILY 08/07/19 [History] Esomeprazole Magnesium [NexIUM] 20 mg PO DAILY 08/07/19 [History] Gabapentin 800 mg PO TID 08/07/19 [History] Meloxicam [Mobic] 7.5 mg PO BID 08/07/19 [History] metFORMIN HCL 1,000 mg PO BID 08/07/19 [History] Aspirin 81 mg PO DAILY #30 chewable 08/09/19 [Rx] Follow up Appointment(s)/Referral(s): Nilton Davis DO [Primary Care Provider] - 3 Days Raoul Zarate MD [STAFF PHYSICIAN] - 08/16/19 4:30 pm (Follow up in the office with Dr. Zarate for a Site Check as scheduled) Patient Instructions/Handouts: *Surgery [facility] - After Heart Catheterization - Satellite [employer] Operator Instructions Activity/Diet/Wound Care/Special Instructions: See Activity Restriction Instructions
[2019-08-10 16:23] VITALS: BP 121/71; PULSE 94
[2019-08-10 16:34] LABS: Glucose,Whole Blood 173 mg/dL (75-99)
[2019-08-12] MEDS ORDERED: metFORMIN 500 MG TAB PO SCH (21:00)
== END 2019-08-10 19:10 | disposition home or self-care (01) ==
LOC: EC 12:16 → UNDOADMOB 14:07 → 1SOBS 14:07 → INTOOBSV 08-09 15:12 → OBSVTOIN 08-09 15:12 → UNDODISIN 08-10 19:10
PROVIDERS: ADMIT Hospitalist; ATTEND Hospitalist
PROC: B2111ZZ Fluoroscopy of Multiple Coronary Arteries using Low Osmolar Contrast (ICD-10-PCS; 2019-08-10)
PROC: 4A023N7 Measurement of Cardiac Sampling and Pressure, Left Heart, Percutaneous Approach (ICD-10-PCS; principal; 2019-08-10 12:30)
DX: R07.89 Other chest pain (principal); E78.5 Hyperlipidemia, unspecified; F41.9 Anxiety disorder, unspecified; M79.7 Fibromyalgia; I20.0 Unstable angina; E78.00 Pure hypercholesterolemia, unspecified; I10 Essential (primary) hypertension; K76.0 Fatty (change of) liver, not elsewhere classified; F32.9 Major depressive disorder, single episode, unspecified; M50.20 Other cervical disc displacement, unspecified cervical region; E03.9 Hypothyroidism, unspecified; E11.42 Type 2 diabetes mellitus with diabetic polyneuropathy; E66.9 Obesity, unspecified; Z68.35 Body mass index [BMI] 35.0-35.9, adult; M19.042 Primary osteoarthritis, left hand; M19.041 Primary osteoarthritis, right hand; Z82.49 Family history of ischemic heart disease and other diseases of the circulatory system; Z79.899 Other long term (current) drug therapy; Z79.891 Long term (current) use of opiate analgesic; Z79.890 Hormone replacement therapy; Z79.84 Long term (current) use of oral hypoglycemic drugs; Z79.1 Long term (current) use of non-steroidal anti-inflammatories (NSAID); Z90.49 Acquired absence of other specified parts of digestive tract; Z86.14 Personal history of Methicillin resistant Staphylococcus aureus infection
CPT/HCPCS: 96376 ×3; 96374; 99285; 36415; 93005; 93458; 85379; 80053; 83735; 84484 ×3; 85025; 85610; 85730; 76000; 71046; G0378 ×4; C1769; C1894; J2250; J2270 ×3; J2001; J1644; Q9967

== ENCOUNTER → 2019-08-30 | Day surgery (SDC) | payer MEDICARE ==
[2019-08-28 14:13] VITALS: BMI 34.6
[~2019-08-30] MED LIST: LACTATED RINGERS 1,000 ML IV SCH; LIDOCAINE 1% 20 ML VIAL (10MG/ML) FOR IV START INTRADERMA ONE; LIDOCAINE 1% INJ 10MG/ML (20 ML MDV) ONE; PROPOFOL 10 MG/ML 20 ML VIAL IV ONE
[2019-08-30 07:12] VITALS: RESP 16; TEMP 97
[2019-08-30 07:23] LABS: Glucose,Whole Blood 119 mg/dL (75-99)
--- NOTE | 2019-08-30 07:45 | P.PCN ---
Date of Procedure: 08/30/19 Procedure(s) Performed: BRIEF HISTORY: Patient is a 64-year-old pleasant white female scheduled for an elective colonoscopy as a part of evaluation of change in bowel habits for the last several years duration. PROCEDURE PERFORMED: Colonoscopy. PREOPERATIVE DIAGNOSIS: Change in bowel habits. IV sedation per Anesthesia. PROCEDURE: After informed consent was obtained, the patient, was brought into the endoscopy unit. IV sedation was administered by Anesthesia under continuous monitoring. Digital rectal examination was normal. Initially the Olympus CF-160 flexible video colonoscope was then inserted in the rectum, gradually advanced into the cecum without any difficulty. Careful examination was performed as the scope was gradually being withdrawn. Ileocecal valve and the appendiceal orifice were visualized and appeared normal. Prep was excellent. Mucosa of the cecum, ascending colon, transverse colon, descending colon, sigmoid colon, and rectum appeared normal. Retroflexion was performed in the rectum and no lesions were seen. The patient tolerated the procedure well. IMPRESSION: Normal-appearing colon from rectum to cecum with no evidence of colorectal neoplasia. RECOMMENDATIONS: Findings of this examination were discussed with the patient as well as her family. She was advised to be a high-fiber diet, take fiber supplements a regular basis. She can have a repeat screening colonoscopy in 10 years
[2019-08-30 08:11] VITALS: BP 119/82; PULSE 88
== END ==
LOC: ORWHC2ENDO 06:46
PROVIDERS: ATTEND Internal Medicine Gastroenterology
DX: R19.4 Change in bowel habit (principal); Z79.84 Long term (current) use of oral hypoglycemic drugs; Z79.899 Other long term (current) drug therapy; E78.5 Hyperlipidemia, unspecified; E11.42 Type 2 diabetes mellitus with diabetic polyneuropathy; J45.909 Unspecified asthma, uncomplicated; E07.9 Disorder of thyroid, unspecified; M79.7 Fibromyalgia; M50.30 Other cervical disc degeneration, unspecified cervical region; Z79.82 Long term (current) use of aspirin; Z79.890 Hormone replacement therapy
CPT/HCPCS: 45378; J2001; J2704

== ENCOUNTER 2021-02-17 18:09 | Emergency (ER) | payer MEDICARE ==
[2021-02-17 18:25] VITALS: TEMP 98.8
[2021-02-17] MEDS ORDERED: SODIUM CHLORIDE 0.9% 1,000 ML IV STA (18:37)
[2021-02-17 19:14] LABS: Basophils # (A) 0.1 k/uL (0-0.2); Basophils % (A) 1 %; Eosinophils # (A) 0.6 k/uL (0-0.7); Eosinophils % (A) 4 %; HCT 44.6 % (34.0-46.0); HGB 15.4 gm/dL (11.4-16.0); Lymphocytes # (A) 3.1 k/uL (1.0-4.8); Lymphocytes % (A) 24 %; MCH 32.6 pg (25.0-35.0); MCHC 34.4 g/dL (31.0-37.0); MCV 94.8 fL (80.0-100.0); Mean Platelet Volume 9.1; Monocytes # (A) 0.7 k/uL (0-1.0); Monocytes % (A) 5 %; Neutrophils # (A) 8.6 k/uL (1.3-7.7); Neutrophils % (A) 65 %; Platelet Count 303 k/uL (150-450); RBC 4.71 m/uL (3.80-5.40); RDW 12.4 % (11.5-15.5); WBC 13.2 k/uL (3.8-10.6)
--- NOTE | 2021-02-17 19:14 | XR ---
EXAMINATION TYPE: XR chest 2V DATE OF EXAM: 02/17/2021 COMPARISON: 08/07/2019 HISTORY: Chest pain TECHNIQUE: 2 views FINDINGS: Heart and mediastinum are normal. Lungs are clear of infiltrate. There is no heart failure. There are no hilar masses. The bony thorax is intact. There are chest leads. IMPRESSION: No active cardiopulmonary disease. Normal heart. No change.
[2021-02-17 19:27] LABS: Albumin 4.6 g/dL (3.5-5.0); Calcium 9.9 mg/dL (8.4-10.2); Magnesium 1.8 mg/dL (1.6-2.3); Potassium 3.8 mmol/L (3.5-5.1); Total Bilirubin 0.5 mg/dL (0.2-1.3); Total Protein 7.2 g/dL (6.3-8.2)
--- NOTE | 2021-02-17 19:32 | CT ---
EXAMINATION TYPE: CT brain jarrett wo con DATE OF EXAM: 02/17/2021 COMPARISON: Fall. Pain. HISTORY: recent fall and bump on back of head CT DLP: 1364.5 mGycm Automated exposure control for dose reduction was used. Ventricles have normal size. There is no mass effect nor midline shift. There is no sign of intracran ial hemorrhage. There is mild atrophy appropriate for age. The calvarium is intact. There is normal a eration of the mastoid sinuses. The cervical vertebra have normal alignment. Facet joints are intact. There is mild hypertrophic face t arthropathy. There is no compression fracture. There is minor spurring of the endplates. IMPRESSION: Mild degenerative disc changes in the cervical spine. No fracture. Negative CT scan of the brain.
[2021-02-17 19:52] LABS: Prothrombin Time 10.3 sec (9.0-12.0)
[2021-02-17 20:06] LABS: Partial Thromboplastin Time 18.7 sec (22.0-30.0)
--- NOTE | 2021-02-17 21:26 | CT ---
EXAMINATION TYPE: CT chest angio for PE DATE OF EXAM: 02/17/2021 COMPARISON: None HISTORY: elevated d-dimer CT DLP: 323.7 mGycm Automated exposure control for dose reduction was used. CONTRAST: Performed with IV Contrast, patient injected with 72cc mL of Isovue 370. There are 3-D post processed images. The lungs are clear of consolidation. There is no pleural effusion. Heart size is normal. There is no pericardial effusion. There are no hilar masses. There is no mediastinal adenopathy. Thoracic aorta appears intact. The asc ending aorta measures 3.3 cm. There is no dissection. There is normal contrast opacification of the pulmonary arteries. There are no filling defects. There is mild thoracic kyphotic deformity. The ribs appear intact. There is no significant thoracic compre ssion deformity. IMPRESSION: No evidence of pulmonary embolism. No suspicious pulmonary mass.
--- NOTE | 2021-02-17 22:04 | ED ---
General Adult HPI - General Chief complaint: Syncope Stated complaint: fall, dizzy Time Seen by Provider: 02/17/21 18:36 Source: patient Mode of arrival: wheelchair Limitations: no limitations - History of Present Illness Initial comments: Lashaun is a 65-year-old female who presents to the ER today for evaluation of lightheadedness and syncope. Patient reports that earlier in the day she got up to walk felt very lightheaded and had a syncopal event. States she was very lightheaded and 2 nervous to stand back up immediately so she laid down on her d og bed. She then was able to get up and walk to her own bed where she rested. She continued to feel somewhat lightheaded and decided to come to ER for further evaluation. Patient denies any chest pain palpitations or shortness of breath. She denies any recent illness. She reports she's been eating and drinking well. - Related Data Home Medications Medication Instructions Recorded Confirmed Atorvastatin [Lipitor] 40 mg PO HS 02/17/16 02/17/21 Hydrochlorothiazide 12.5 mg PO DAILY 02/17/16 02/17/21 [hydroCHLOROthiazide] Levothyroxine Sodium [Synthroid] 50 mcg PO HS 02/17/16 02/17/21 DULoxetine HCL [Cymbalta] 60 mg PO BID 08/07/19 02/17/21 metFORMIN HCL 1,000 mg PO BID 08/07/19 02/17/21 Esomeprazole Magnesium [NexIUM 20 mg PO DAILY PRN 02/17/21 02/17/21 24Hr] Ferrous Sulfate [Feosol] 325 mg PO DAILY 02/17/21 02/17/21 Montelukast Sodium [Singulair] 10 mg PO HS 02/17/21 02/17/21 Pregabalin [Lyrica] 150 mg PO BID 02/17/21 02/17/21 busPIRone HCl [Buspar] 5 mg PO BID 02/17/21 02/17/21 Allergies Allergy/AdvReac Type Severity Reaction Status Date / Time No Known Allergies Allergy Verified 02/17/21 20:54 Review of Systems ROS Statement: Those systems with pertinent positive or pertinent negative responses have been documented in the HPI. ROS Other: All systems not noted in ROS Statement are negative. Past Medical History Past Medical History: Diabetes Mellitus, Fibromyalgia, Hyperlipidemia, Thyroid Disorder Additional Past Medical History / Comment(s): HERNIATED DISC IN NECK AND BACK FATTY LIVER NEUROPATHY History of Any Multi-Drug Resistant Organisms: MRSA Date of last positivie culture/infection: 2007 MDRO Source:: face Past Surgical History: Appendectomy, Hysterectomy, Tonsillectomy Additional Past Surgical History / Comment(s): LEFT WRIST SURGERY BILATERAL ELBOW SURGERY BREAST SURGERY Past Anesthesia/Blood Transfusion Reactions: No Reported Reaction Past Psychological History: Anxiety, Depression Smoking Status: Never smoker Past Alcohol Use History: Rare Past Drug Use History: None Reported - Past Family History Mother Family Medical History: Myocardial Infarction ([place]) Additional Family Medical History / Comment(s): at age 45 Brother(s) Family Medical History: Cancer Additional Family Medical History / Comment(s): LUNG CANCER General Exam - General Exam Comments Initial Comments: Physical Exam GENERAL: Patient is well-developed and well-nourished. Patient is nontoxic and well- hydrated and is in no distress. HENT: Normocephalic, Atraumatic. EYES: PERRL, EOMI PULMONARY: Unlabored respirations. No audible rales rhonchi or wheezing was noted. CARDIOVASCULAR: There is a regular rate and rhythm without any murmurs gallops or rubs. ABDOMEN: Soft and nontender with normal bowel sounds. SKIN: Skin is clear with no lesions or rashes and otherwise unremarkable. : Deferred NEUROLOGIC: Patient is alert and oriented x3. Moving all extremities spontaneously MUSCULOSKELETAL: Normal extremities with adequate strength and full range of motion. No lower extremity swelling or edema. No calf tenderness. PSYCHIATRIC: Normal psychiatric evaluation. Limitations: no limitations Course Vital Signs 02/17/21 02/17/21 02/17/21 18:23 18:51 22:15 Temperature 98.8 F Pulse Rate 89 88 84 Respiratory 18 18 16 Rate Blood Pressure 83/56 117/75 101/73 O2 Sat by Pulse 97 98 Oximetry EKG Findings - EKG Comments: EKG Findings:: EKG was obtained due to complaint of syncope EKG obtained at 1836 rate is 90 rhythm is sinus there is a normal axis there are normal intervals, VA 170 QRS 80 QTc 442 there are no acute ST elevations or depressions there is no evidence of acute ischemia or infarction Procedures - [place] Protocol (Time Out) Nurse: Yaz Das Medical Decision Making - Medical Decision Making The patient was seen and evaluated, history is obtained from the patient and at bedside Pleasant 65-year-old female with syncopal event presented somewhat hypotensive Labs were obtained patient received IV fluids, d-dimer is elevated at PE study was performed which is negative Patient reported feeling much better I did offer to keep the patient observation for syncope but she would prefer discharge home at this time - Lab Data Result diagrams: 02/17/21 18:58 02/17/21 18:58 Lab Results 02/17/21 02/17/21 02/17/21 Range/Units 18:58 18:58 18:58 WBC 13.2 H (3.8-10.6) k/uL RBC 4.71 (3.80-5.40) m/uL Hgb 15.4 (11.4-16.0) gm/dL Hct 44.6 (34.0-46.0) % MCV 94.8 (80.0-100.0) fL MCH 32.6 (25.0-35.0) pg MCHC 34.4 (31.0-37.0) g/dL RDW 12.4 (11.5-15.5) % Plt Count 303 (150-450) k/uL MPV 9.1 Neutrophils % 65 % Lymphocytes % 24 % Monocytes % 5 % Eosinophils % 4 % Basophils % 1 % Neutrophils # 8.6 H (1.3-7.7) k/uL Lymphocytes # 3.1 (1.0-4.8) k/uL Monocytes # 0.7 (0-1.0) k/uL Eosinophils # 0.6 (0-0.7) k/uL Basophils # 0.1 (0-0.2) k/uL PT 10.3 (9.0-12.0) sec INR 1.0 (<1.2) APTT 18.7 L (22.0-30.0) sec D-Dimer 7.36 H (<0.60) mg/L FEU Sodium 137 (137-145) mmol/L Potassium 3.8 (3.5-5.1) mmol/L Chloride 98 (98-107) mmol/L Carbon Dioxide 28 (22-30) mmol/L Anion Gap 11 mmol/L BUN 24 H (7-17) mg/dL Creatinine 0.88 (0.52-1.04) mg/dL Est GFR (CKD-EPI)AfAm 80 (>60 ml/min/1.73 sqM) Est GFR (CKD-EPI)NonAf 70 (>60 ml/min/1.73 sqM) Glucose 145 H (74-99) mg/dL Calcium 9.9 (8.4-10.2) mg/dL Magnesium 1.8 (1.6-2.3) mg/dL Total Bilirubin 0.5 (0.2-1.3) mg/dL AST 25 (14-36) U/L ALT 17 (4-34) U/L Alkaline Phosphatase 82 (38-126) U/L Troponin I (0.000-0.034) ng/mL Total Protein 7.2 (6.3-8.2) g/dL Albumin 4.6 (3.5-5.0) g/dL 02/17/21 Range/Units 18:58 WBC (3.8-10.6) k/uL RBC (3.80-5.40) m/uL Hgb (11.4-16.0) gm/dL Hct (34.0-46.0) % MCV (80.0-100.0) fL MCH (25.0-35.0) pg MCHC (31.0-37.0) g/dL RDW (11.5-15.5) % Plt Count (150-450) k/uL MPV Neutrophils % % Lymphocytes % % Monocytes % % Eosinophils % % Basophils % % Neutrophils # (1.3-7.7) k/uL Lymphocytes # (1.0-4.8) k/uL Monocytes # (0-1.0) k/uL Eosinophils # (0-0.7) k/uL Basophils # (0-0.2) k/uL PT (9.0-12.0) sec INR (<1.2) APTT (22.0-30.0) sec D-Dimer (<0.60) mg/L FEU Sodium (137-145) mmol/L Potassium (3.5-5.1) mmol/L Chloride (98-107) mmol/L Carbon Dioxide (22-30) mmol/L Anion Gap mmol/L BUN (7-17) mg/dL Creatinine (0.52-1.04) mg/dL Est GFR (CKD-EPI)AfAm (>60 ml/min/1.73 sqM) Est GFR (CKD-EPI)NonAf (>60 ml/min/1.73 sqM) Glucose (74-99) mg/dL Calcium (8.4-10.2) mg/dL Magnesium (1.6-2.3) mg/dL Total Bilirubin (0.2-1.3) mg/dL AST (14-36) U/L ALT (4-34) U/L Alkaline Phosphatase (38-126) U/L Troponin I <0.012 (0.000-0.034) ng/mL Total Protein (6.3-8.2) g/dL Albumin (3.5-5.0) g/dL Disposition Clinical Impression: Syncope Disposition: HOME SELF-CARE Condition: Stable Instructions (If sedation given, give patient instructions): Syncope (DC) Is patient prescribed a controlled substance at d/c from ED?: No Referrals: Montserrat Mcgrath MD [Primary Care Provider] - 1-2 days
[2021-02-17 22:16] VITALS: BP 101/73; PULSE 84; RESP 16
== END 2021-02-17 22:16 | disposition home or self-care (01) ==
LOC: EC 18:09
DX: R55 Syncope and collapse (principal); R42 Dizziness and giddiness; E78.5 Hyperlipidemia, unspecified; M79.7 Fibromyalgia; E11.40 Type 2 diabetes mellitus with diabetic neuropathy, unspecified; F32.9 Major depressive disorder, single episode, unspecified; F41.9 Anxiety disorder, unspecified; Z79.84 Long term (current) use of oral hypoglycemic drugs; Z79.899 Other long term (current) drug therapy
CPT/HCPCS: 93005; 85379; 80053; 83735; 84484; 85025; 85610; 85730; 71046; 72125; 70450; 71275; 99285; 96360; 96361; Q9967; 36415

== ENCOUNTER 2021-06-27 13:58 | Emergency (ER) | payer MEDICARE ==
[2021-06-27 14:05] VITALS: RESP 18; TEMP 98.2
--- NOTE | 2021-06-27 14:32 | ED ---
General Adult HPI - General Chief complaint: Chest Pain Stated complaint: Chest Pain Time Seen by Provider: 06/27/21 14:19 Source: patient, RN notes reviewed, old records reviewed Mode of arrival: wheelchair Limitations: no limitations - History of Present Illness Initial comments: 65-year-old female presenting for evaluation of left upper chest pain which is sharp in nature, has been occurring over the past one week. There is no previous history of CAD. Patient admits she has fibromyalgia and gets chest pain on a frequent basis. This is typically bilateral. She reports some dull aching upper back pain. No associated vomiting. No abdominal pain. No lower extremity pain or swelling. No history of DVT or PE. She is a nonsmoker. She states that she has been monitoring her blood pressure at home and her cough has been reading quite high in the 180s systolic. - Related Data Home Medications Medication Instructions Recorded Confirmed Atorvastatin [Lipitor] 40 mg PO HS 02/17/16 02/17/21 Hydrochlorothiazide 12.5 mg PO DAILY 02/17/16 02/17/21 [hydroCHLOROthiazide] Levothyroxine Sodium [Synthroid] 50 mcg PO HS 02/17/16 02/17/21 DULoxetine HCL [Cymbalta] 60 mg PO BID 08/07/19 02/17/21 metFORMIN HCL [Glucophage] 1,000 mg PO BID 08/07/19 02/17/21 Esomeprazole Magnesium [NexIUM 20 mg PO DAILY PRN 02/17/21 02/17/21 24Hr] Ferrous Sulfate [Feosol] 325 mg PO DAILY 02/17/21 02/17/21 Montelukast Sodium [Singulair] 10 mg PO HS 02/17/21 02/17/21 Pregabalin [Lyrica] 150 mg PO BID 02/17/21 02/17/21 busPIRone HCl [Buspar] 5 mg PO BID 02/17/21 02/17/21 Allergies Allergy/AdvReac Type Severity Reaction Status Date / Time No Known Allergies Allergy Verified 02/17/21 20:54 Review of Systems ROS Statement: Those systems with pertinent positive or pertinent negative responses have been documented in the HPI. ROS Other: All systems not noted in ROS Statement are negative. Past Medical History Past Medical History: Diabetes Mellitus, Fibromyalgia, Hyperlipidemia, Thyroid Disorder Additional Past Medical History / Comment(s): HERNIATED DISC IN NECK AND BACK FATTY LIVER NEUROPATHY History of Any Multi-Drug Resistant Organisms: MRSA Date of last positivie culture/infection: 2007 MDRO Source:: face Past Surgical History: Appendectomy, Hysterectomy, Tonsillectomy Additional Past Surgical History / Comment(s): LEFT WRIST SURGERY BILATERAL ELBOW SURGERY BREAST SURGERY Past Anesthesia/Blood Transfusion Reactions: No Reported Reaction Past Psychological History: Anxiety, Depression Smoking Status: Never smoker Past Alcohol Use History: Rare Past Drug Use History: None Reported - Past Family History Mother Family Medical History: Myocardial Infarction ([place]) Additional Family Medical History / Comment(s): at age 45 Brother(s) Family Medical History: Cancer Additional Family Medical History / Comment(s): LUNG CANCER General Exam Limitations: no limitations General appearance: alert, in no apparent distress Head exam: Present: atraumatic, normocephalic Eye exam: Present: normal appearance, PERRL ENT exam: Present: normal exam Neck exam: Present: normal inspection. Absent: tenderness, meningismus Respiratory exam: Present: normal lung sounds bilaterally. Absent: respiratory distress, wheezes Cardiovascular Exam: Present: regular rate, normal rhythm GI/Abdominal exam: Present: soft. Absent: distended, tenderness Extremities exam: Present: normal inspection, normal capillary refill. Absent: pedal edema Neurological exam: Present: alert, oriented X3, CN II-XII intact Psychiatric exam: Present: normal affect, normal mood Skin exam: Present: warm, dry, intact. Absent: cyanosis, diaphoretic Course Vital Signs 06/27/21 06/27/21 14:00 15:19 Temperature 98.2 F Pulse Rate 90 80 Respiratory 18 18 Rate Blood Pressure 124/76 109/77 O2 Sat by Pulse 100 98 Oximetry EKG Findings - EKG Comments: EKG Findings:: EKG: Normal sinus rhythm, rate of 84, SD interval 192, QRS duration [address] segment elevation. Medical Decision Making - Medical Decision Making 65-year-old female presenting with left upper chest pain for the past one week. This is atypical. No previous history of CAD. EKG is nonischemic normal sinus rhythm. Patient has a clear chest x-ray. Normal CBC, normal CMP, negative troponin. Given the atypical features in the history of elevated blood pressure at home I did perform CT angiography of the chest which was negative for acute findings. Patient reassured. Eager for discharge. She will follow with her primary care physician. If symptoms were to change or worsen she should return to the emergency department. - Lab Data Result diagrams: 06/27/21 14:38 06/27/21 14:38 Lab Results 06/27/21 06/27/21 06/27/21 Range/Units 14:38 14:38 14:38 WBC 10.1 (3.8-10.6) k/uL RBC 4.67 (3.80-5.40) m/uL Hgb 14.3 (11.4-16.0) gm/dL Hct 44.5 (34.0-46.0) % MCV 95.3 (80.0-100.0) fL MCH 30.7 (25.0-35.0) pg MCHC 32.2 (31.0-37.0) g/dL RDW 12.8 (11.5-15.5) % Plt Count 339 (150-450) k/uL MPV 7.6 Neutrophils % 44 % Lymphocytes % 36 % Monocytes % 4 % Eosinophils % 13 % Basophils % 1 % Neutrophils # 4.4 (1.3-7.7) k/uL Lymphocytes # 3.7 (1.0-4.8) k/uL Monocytes # 0.4 (0-1.0) k/uL Eosinophils # 1.3 H (0-0.7) k/uL Basophils # 0.1 (0-0.2) k/uL PT 10.0 (9.0-12.0) sec INR 0.9 (<1.2) APTT 23.8 (22.0-30.0) sec Sodium 135 L (137-145) mmol/L Potassium 5.2 H (3.5-5.1) mmol/L Chloride 97 L (98-107) mmol/L Carbon Dioxide 27 (22-30) mmol/L Anion Gap 11 mmol/L BUN 18 H (7-17) mg/dL Creatinine 0.84 (0.52-1.04) mg/dL Est GFR (CKD-EPI)AfAm 84 (>60 ml/min/1.73 sqM) Est GFR (CKD-EPI)NonAf 73 (>60 ml/min/1.73 sqM) Glucose 134 H (74-99) mg/dL Calcium 9.8 (8.4-10.2) mg/dL Magnesium 1.9 (1.6-2.3) mg/dL Total Bilirubin 0.7 (0.2-1.3) mg/dL AST 30 (14-36) U/L ALT 16 (4-34) U/L Alkaline Phosphatase 79 (38-126) U/L Troponin I (0.000-0.034) ng/mL Total Protein 7.5 (6.3-8.2) g/dL Albumin 4.6 (3.5-5.0) g/dL 06/27/21 Range/Units 14:38 WBC (3.8-10.6) k/uL RBC (3.80-5.40) m/uL Hgb (11.4-16.0) gm/dL Hct (34.0-46.0) % MCV (80.0-100.0) fL MCH (25.0-35.0) pg MCHC (31.0-37.0) g/dL RDW (11.5-15.5) % Plt Count (150-450) k/uL MPV Neutrophils % % Lymphocytes % % Monocytes % % Eosinophils % % Basophils % % Neutrophils # (1.3-7.7) k/uL Lymphocytes # (1.0-4.8) k/uL Monocytes # (0-1.0) k/uL Eosinophils # (0-0.7) k/uL Basophils # (0-0.2) k/uL PT (9.0-12.0) sec INR (<1.2) APTT (22.0-30.0) sec Sodium (137-145) mmol/L Potassium (3.5-5.1) mmol/L Chloride (98-107) mmol/L Carbon Dioxide (22-30) mmol/L Anion Gap mmol/L BUN (7-17) mg/dL Creatinine (0.52-1.04) mg/dL Est GFR (CKD-EPI)AfAm (>60 ml/min/1.73 sqM) Est GFR (CKD-EPI)NonAf (>60 ml/min/1.73 sqM) Glucose (74-99) mg/dL Calcium (8.4-10.2) mg/dL Magnesium (1.6-2.3) mg/dL Total Bilirubin (0.2-1.3) mg/dL AST (14-36) U/L ALT (4-34) U/L Alkaline Phosphatase (38-126) U/L Troponin I <0.012 (0.000-0.034) ng/mL Total Protein (6.3-8.2) g/dL Albumin (3.5-5.0) g/dL Disposition Clinical Impression: Atypical chest pain Disposition: HOME SELF-CARE Condition: Good Instructions (If sedation given, give patient instructions): Chest Pain (ED) Is patient prescribed a controlled substance at d/c from ED?: No Referrals: Montserrat Mcgrath MD [Primary Care Provider] - 1-2 days Time of Disposition: 16:32
[2021-06-27 14:45] LABS: Basophils # (A) 0.1 k/uL (0-0.2); Basophils % (A) 1 %; Eosinophils # (A) 1.3 k/uL (0-0.7); Eosinophils % (A) 13 %; HCT 44.5 % (34.0-46.0); HGB 14.3 gm/dL (11.4-16.0); Lymphocytes # (A) 3.7 k/uL (1.0-4.8); Lymphocytes % (A) 36 %; MCH 30.7 pg (25.0-35.0); MCHC 32.2 g/dL (31.0-37.0); MCV 95.3 fL (80.0-100.0); Mean Platelet Volume 7.6; Monocytes # (A) 0.4 k/uL (0-1.0); Monocytes % (A) 4 %; Neutrophils # (A) 4.4 k/uL (1.3-7.7); Neutrophils % (A) 44 %; Platelet Count 339 k/uL (150-450); RBC 4.67 m/uL (3.80-5.40); RDW 12.8 % (11.5-15.5); WBC 10.1 k/uL (3.8-10.6)
--- NOTE | 2021-06-27 14:52 | XR ---
EXAMINATION TYPE: XR chest 2V DATE OF EXAM: 06/27/2021 COMPARISON: 02/17/2021 HISTORY: Wrist pain TECHNIQUE: FINDINGS: There is no heart failure nor confluent pneumonic infiltrate. Costophrenic angles are clear . There are chest leads. Bony thorax is intact. IMPRESSION: No active cardiopulmonary disease. Normal heart. No change.
[2021-06-27 14:57] LABS: Albumin 4.6 g/dL (3.5-5.0); Calcium 9.8 mg/dL (8.4-10.2); Magnesium 1.9 mg/dL (1.6-2.3); Potassium 5.2 mmol/L (3.5-5.1); Total Bilirubin 0.7 mg/dL (0.2-1.3); Total Protein 7.5 g/dL (6.3-8.2)
[2021-06-27 15:05] LABS: INR 0.9 (<1.2); Partial Thromboplastin Time 23.8 sec (22.0-30.0)
[2021-06-27 15:20] VITALS: BP 109/77; PULSE 80
--- NOTE | 2021-06-27 16:10 | CT ---
EXAMINATION TYPE: CT angio chest DATE OF EXAM: 06/27/2021 COMPARISON: 02/17/2021 HISTORY: Chest pain radiating into back CT DLP: 297 mGycm Automated exposure control for dose reduction was used. CONTRAST: Performed with IV Contrast, patient injected with 100 mL of Isovue 300. There are 3-D post processed images. There is mild subsegmental atelectasis at the lung bases. There is no pleural effusion. Heart size is normal. There is no pericardial effusion. There is no mediastinal adenopathy. There are no hilar masses. Thoracic aorta is intact. There is no aneurysm or dissection. There is normal contrast opacification of the pulmonary arteries. There are no filling defects. The t horacic spine is intact. There is no compression fracture. Sternum is intact. IMPRESSION: Mild subsegmental atelectasis. No evidence of pulmonary embolism. No significant change compared to o ld exam. No suspicious pulmonary mass.
== END 2021-06-27 17:00 | disposition home or self-care (01) ==
LOC: EC 13:58
DX: R07.89 Other chest pain (principal); E11.40 Type 2 diabetes mellitus with diabetic neuropathy, unspecified; E78.5 Hyperlipidemia, unspecified; M79.7 Fibromyalgia; F32.9 Major depressive disorder, single episode, unspecified; F41.9 Anxiety disorder, unspecified; Z79.890 Hormone replacement therapy; Z79.84 Long term (current) use of oral hypoglycemic drugs; Z79.899 Other long term (current) drug therapy; Z90.49 Acquired absence of other specified parts of digestive tract; Z82.49 Family history of ischemic heart disease and other diseases of the circulatory system; Z80.1 Family history of malignant neoplasm of trachea, bronchus and lung
CPT/HCPCS: 36415; 93005; 80053; 83735; 84484; 85025; 85610; 85730; 71046; 71275; 99285; Q9967

== ENCOUNTER → 2022-03-18 | Outpatient (CLI) | payer MEDICARE ==
--- NOTE | 2022-03-18 10:13 | BD ---
EXAMINATION TYPE: Axial Bone Density DATE OF EXAM: 03/18/2022 COMPARISON: 01.28.2016 CLINICAL HISTORY: 66 years year old Female. ICD-10 CODE: Z78.0 POST MENOPAUSAL WITHOUT HRT Height: 63.3 Weight: 190 FRAX RISK QUESTIONS: Glucocorticoids (More than 3mos): YES (Ex: prednisone, prednisolone, methylprednisolone, dexamethasone, and hydrocortisone). History of Fracture in Adulthood: YES Secondary Osteoporosis: YES 3. Menopause before 45: YES RISK FACTORS HISTORY OF: HX OF LT ANKLE BREAK X2 TIMES SINCE ADULT History of Wrist Fracture: LT WRIST FX WITH SURG X2 TIMES YOUNG ADULT Surgery REMOVAL OF BONE FOR WRIST GRAFT FROM PELVIS ON THE LT SIDE Active: USES CANE, NO Postmenopausal woman: YES, AT AGE 28 YRS OLD Take estrogen and/or progesterone medications: YES, PREMARIN FOR ABOUT 20 YRS, NOT NOW Lost more than 2 inches in height since high school: YES Frequent falls: USING CANE Hyperparathyroidism: NO Adrenal Insufficiency: NO MEDICATIONS: Prednisone or other steroids: YES, INHALER PRN Thyroid Medications: YES, FOR ABOUT 3 YRS, SYNTHROID Additional Medications: BP MEDS, CYMBALTA, BUSPAR , METFORMIN, REFLUX MEDS, STATIN FOR CHOLESTEROL, L YRICA, Additional History: HYPERTENSION, FIBROMYALGIA, DIABETIC, REFLUX, CHOLESTEROL, ANXIETY, ASTHMA, THYR OID, EXAM MEASUREMENTS: Bone mineral densitometry was performed using the [employer] System. Bone mineral density as measured about the Lumbar spine is: ----- L1-L4(G/cm2): 1.130 T Score Values are as follows: ----- L1: -1.9 ----- L2: -0.3 ----- L3: 0.3 ----- L4: -0.2 ----- L1-L4: -0.4 Bone mineral density has: Increased 5.5% since study of: 01.28.2016 Bone mineral density about the R hip (g/cm2): 0.956 Bone mineral density about the L hip (g/cm2): 0.951 T Score values are as follows: -----R Neck: -1.9 -----L Neck: -2.3 -----R Total: -0.4 -----L Total: -0.4 Bone mineral density has: Decreased -6.7% since study of: 01.28.2016 FRAX%s: The graph provided illustrates a 29.6% chance for a major osteoporotic fx and a 6.8% chance f or the hips probability for fx in 10 years time. IMPRESSION: Osteopenia (T Score between -2.5 and -1). There is slightly increased risk of fracture and the patient may be considered for treatment. Re-Screen 2-5 years. NOTE: T-SCORE=SD OF THE YOUNG ADULT MEAN.
--- NOTE | 2022-03-18 12:20 | MM ---
Reason for Exam: Screening (asymptomatic). Last mammogram was performed 6 year(s) and 2 month(s) ago. Patient History: Menarche at age 15. First Full-Term at age 16. Left ovary removed at age 29. Right ovary removed at age 29. Hysterectomy at age 28. Postmenopausal. Estrogen for 20 years from age 28 until age 48. Benign Excisional Biopsy on the left side. Risk Values: Marlene 5 year model risk: 1.3%. NCI Lifetime model risk: 4.7%. Prior Study Comparison: 04/07/2006 Bilateral Screening Mammogram, [facility]. 06/04/2008 Bilateral Screening Mammogram, [facility]. 01/28/2016 Bilateral Screening Mammogram, [facility]. Tissue Density: There are scattered fibroglandular densities. Findings: Analyzed By CAD. Some benign-appearing vascular calcification in the bilateral breasts are redemonstrated. There is no suspicious group of microcalcifications or new suspicious mass in either breast. Overall Assessment: Negative, BI-RAD 1 Management: Screening Mammogram of both breasts in 1 year. A clinical breast exam by your physician is recommended on an annual basis and results should be correlated with mammographic findings. Electronically signed and approved by: Nawaf Underwood M.D.
== END | disposition home or self-care (01) ==
LOC: RADBDWWP 09:07
PROVIDERS: ATTEND Family Medicine
DX: Z12.31 Encounter for screening mammogram for malignant neoplasm of breast (principal); R92.1 Mammographic calcification found on diagnostic imaging of breast; Z78.0 Asymptomatic menopausal state
CPT/HCPCS: 77063; 77067; 77080

== ENCOUNTER → 2022-05-30 | Outpatient (CLI) | payer MEDICARE ==
--- NOTE | 2022-05-30 10:43 | XR ---
EXAMINATION TYPE: XR cervical spine limited DATE OF EXAM: 05/30/2022 COMPARISON: None HISTORY: Shoulder pain and numbness TECHNIQUE: 3 view cervical spine FINDINGS: Facet hypertrophy is present may be greater on the left. Disc heights are preserved. Verteb ral body heights are preserved. Anterior vertebral body spurring is present C4 and C5. Some posterior endplate spurring may be present C5-6. Posterior spinal lamellar line is intact. Prevertebral space is normal. The odontoid is very limited due to maxilla and incisors. IMPRESSION: 1. Degenerative facet changes may be greater on the left. 2. Consider MRI for additional evaluation.
== END | disposition home or self-care (01) ==
LOC: RADXRMAIN 09:18
PROVIDERS: ATTEND Specialist
DX: M50.30 Other cervical disc degeneration, unspecified cervical region (principal)
CPT/HCPCS: 72040

== ENCOUNTER → 2022-05-30 | Outpatient (CLI) | payer MEDICARE ==
[2022-05-30 08:56] VITALS: BP 115/82; PULSE 96; RESP 18; TEMP 98.3
--- NOTE | 2022-05-30 14:48 | P.PAINPG ---
PQRS Measure Charge Sheet Comment: HISTORY OF PRESENT ILLNESS: 66 yr old female w male director medicaid at side as a referral from Dr. Rodríguez presents today w severe and chronic neck pain secondary to DDD, spondylosis and facet arthropathy with out myelopathy for evaluation. Pt states her pain level is currently at 9/10 in intensity, constant, burning, achy in character and the mid to lower aspects of the cervical spine with radiation of sharp, burning pain down the right lower extremity. Patient also states she had an EMG completed at Dr. 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 We will have patient fill out GARCIA form to obtain those results. PMH: Diabetes Mellitus, Fibromyalgia, HTN, Hyperlipidemia, Hypothyroidism, MDD/ Anxiety PSH: Appendectomy, Hysterectomy, Tonsillectomy, L Wrist Surgery, BL Elbow Surgery, Breast Surgery (1979), MANNIE x 3 (2016), TPIs in R Trapezius at Dr Prieto (2021) SH: Never smoker, Rare ETOH use, No illicit drug use. FH: Mo- NE/ at age 45. Brother- Lung CA. All: NKDA Meds: See list REVIEW OF ORGAN SYSTEMS: CONSTITUTIONAL: No fevers or chills. No recent weight loss. NEUROLOGICAL: + numbness and tingling along the distal extremities. No seizure disorders or headaches. MUSCULOSKELETAL: + pain PSYCHIATRIC: Denies current depression or suicidal thoughts. Physical Examinations : Constitutional : Cooperative , not in acute distress . Neurologic : Cranial nerve II to XII intact. No focal neurological deficits. Psychiatric : alert & oriented x 3. Matching mood & appropriate affect. Judgment & insight intact. Musculoskeletal : Cervical Spine Motor strength in the deltoid and biceps: Normal right side. Normal Left side Motor strength biceps and the wrist extensors: Normal right side . Normal left side Motor strength in the triceps muscle: Normal right side. Normal left side Deep tendon reflexes: Normal at the biceps. Normal at Brachioradialis. Normal at triceps Vertebral body tenderness to deep palpation over C6 Cervical facet loading test: positive bilaterally Spurling test: positive bilaterally Neck distraction test: positive bilaterally Joni sign: positive bilaterally Lumbar spine Motor strength lower extremities ,thigh and legs 5/5 Right side , 5/5 Left side Deep tendon reflexes : Normal Knee Jerk. Normal Ankle Jerk Vertebral body tenderness over Lumbar facet Loading Test: positive Right / positive Left Range of motion of the lumbar spine Flexion 30 degrees, extension 10 degrees Straight Leg Raise test: Left/ Right positive at degree Jagdish test: positive right / positive left. Severe tenderness over the Sacroiliac joint on the Right / Left sides Gaenslen test: positive bilaterally Seated flexion test: positive bilaterally. Sacral spine : Severe tenderness over the Sacroiliac joint: right side / left side Range of motion: Flexion of the lumbar spine <60 degrees Range of motion: Extension of the lumbar spine <20 degrees Gaenslen's Test positive Denilson's Test positive Jagdish test: positive right side / left side Thigh Thrust Test Sacral Thrust Test Imaging: MRI without contrast of the cervical spine from 03/15/2017 reviewed. Assessment/ Plan : Lumbar DDD, Lumbar Spondylosis Recommendation of GARCIA form completed to fax to Dr Prieto to obtain EMG results. Cervical X-ray script re M50.30. May need additional testing based on results. Pt may follow up at our clinic within 2 weeks for results and to explore additional treatment options. All questions answered. I have spent greater than 30 minutes on patient care today. Dr Mitchell was available by phone for the evaluation of this patient. The time was used to review the medical records including relevant urine studies and Prescription history (MAPs), review of the available imaging, evaluation and examination of the patient, coordination of care with the medical staff and if applicable referring physicians, as well as creation of the medical record - Pain Location Right Lower Neck Non-Pharmacological Interventions: Elevation, Ice, Inactivity, Position/Reposition, Sitting Pharmacological Interventions: PRN Medication, Prophylactic Medication, Topical Medication PQRS Narrative: Smoking Status Never smoker Home Medications: Ambulatory Orders Atorvastatin [Lipitor] 40 mg PO HS 02/17/16 Levothyroxine Sodium [Synthroid] 50 mcg PO HS 02/17/16 hydroCHLOROthiazide 12.5 mg PO DAILY 02/17/16 DULoxetine HCL [Cymbalta] 60 mg PO BID 08/07/19 metFORMIN HCL [Glucophage] 1,000 mg PO BID 08/07/19 Esomeprazole Magnesium [NexIUM 24Hr] 20 mg PO DAILY PRN 02/17/21 Ferrous Sulfate [Feosol] 325 mg PO DAILY 02/17/21 Montelukast Sodium [Singulair] 10 mg PO HS 02/17/21 Pregabalin [Lyrica] 150 mg PO BID 02/17/21 busPIRone HCl [Buspar] 5 mg PO BID 02/17/21 Controlled Substance Measures - Controlled Substance Measures Is patient prescribed a controlled substance at discharge?: No
== END ==
LOC: PNWHC3 07:43
PROVIDERS: ATTEND Specialist
DX: M51.16 Intervertebral disc disorders with radiculopathy, lumbar region (principal); M47.26 Other spondylosis with radiculopathy, lumbar region; M50.30 Other cervical disc degeneration, unspecified cervical region
CPT/HCPCS: 99211

== ENCOUNTER → 2022-06-08 | Outpatient (CLI) | payer MEDICARE ==
--- NOTE | 2022-06-08 10:31 | MR ---
EXAMINATION TYPE: MR cervical spine wo con DATE OF EXAM: 06/08/2022 COMPARISON: Cervical spine CT 02/27/2021 HISTORY: Rt shoulder/arm pain TECHNIQUE: Multiplanar, multisequence images of the cervical spine were acquired without contrast. Anterior hype rtrophic spurring at C4 and C5 anteriorly C2-C3: Disc desiccation. Mild uncovertebral joint hypertrophy but no canal stenosis or discrete herni ation. Neural foramina remain patent. C3-C4: Disc desiccation with facet arthropathy. There is uncovertebral joint hypertrophy and mild ivan ateral foraminal encroachment. No disc herniation or canal stenosis. C4-C5: Degenerative disc disease and disc herniation with broad-based disc bulging. Bilateral uncover tebral joint hypertrophy and facet arthropathy. Mild effacement of thecal sac and [id number] bilateral foraminal encroachment. C5-C6: Moderate degenerative disc disease with a right paracentral disc bulge capped by spur results in effacement of thecal sac but no spinal cord contact. Bilateral uncovertebral joint hypertrophy and moderate bilateral foraminal encroachment. C6-C7: Degenerative change with disc desiccation and facet arthropathy. No disc herniation or canal s tenosis. No foraminal impingement. C7-T1: No evidence for degenerative disc disease. No disc bulge/herniation or protrusion. No Canal stenosis. Foramina are patent bilaterally. Cervical segments are intact. There is normal alignment. Cervical spinal cord is of normal signal. Craniovertebral junction relationships are within normal limits. IMPRESSION: 1. Multilevel degenerative disc disease most marked at C4-5 and C5-C6. 2. Multilevel foraminal encroachment as discussed above. 3 disc bulging C4-C5 broad-based mild efface ment of the thecal sac and bilateral mild to moderate foraminal encroachment. 3. C5-C6 there is right paracentral disc disc bulge or protrusion capped by spur results in effacemen t of thecal sac. Encroaches toward the anterior margin of the spinal cord with no definite contact. B ilateral moderate foraminal protrusion.
== END | disposition home or self-care (01) ==
LOC: RADMRIMAIN 08:44
PROVIDERS: ATTEND Specialist
DX: M50.323 Other cervical disc degeneration at C6-C7 level (principal)
CPT/HCPCS: 72141

== ENCOUNTER → 2022-06-13 | Outpatient (CLI) | payer MEDICARE ==
[2022-06-13 09:09] VITALS: BP 117/79; PULSE 90; RESP 18; TEMP 98.4
--- NOTE | 2022-06-13 15:40 | P.PAINPG ---
PQRS Measure Charge Sheet Comment: A 66 yr old female with a history of severe and chronic neck pain secondary to cervical degenerative disc diseases and spondylosis with facet arthropathy without myelopathy presents today for evaluation of neck pain. She completed x rays and MRI of the cervical spine. Awaiting records from Dr Rodríguez's office. Pain level is currently at 7/10 in intensity, constant, localized in R neck, dull/ achy in character w shooting towards R shoulder, RUE and R hand. Pain has unknown provocative factors as it is insidious in onset. Pain is alleviated with ice, meds (Tyl, Ibu), topiocals, repositioning and rest. Interventional pain procedures completed include DENIES Patient is currently on Tyl, IBU Patient denies any side effects of the medication(s), denies excessive drowsiness or sleepiness, denies suicidal ideation and reports that the current pain medication is helping to control the pain and improve activities of daily living. Patient denies any motor or sensory deficits. Patient denies any fever or night sweats, denies any change in the bowel movements or urination. Physical Examination: -Constitutional: Cooperative. Not in acute distress . - Neurologic: Cranial nerve II to XII intact. No focal neurological deficits. - Psychatric: Alert & oriented x 3. Matching mood & appropriate affect. J udgment and insight intact. - Musculoskeletal: Cervical spine: Muscle bulk/ tone/ strength in the bilateral upper extremities normal Vertebral body tenderness to palpation over C6 Spurling test positive Distraction test positive Facet loading test positive Thoracic spine Muscle bulk / tone/ strength in the bilateral paraspinal muscles normal Vertebral body tender to palpation over Facet loading test positive Lumbar spine: Motor bulk/ tone/ strength lower extremities , thigh and legs : 5/5 Deep tendon reflexes : Normal Knee Jerk. Normal Ankle Jerk . Vertebral body tenderness to palpation over Lumbar Facet Loading Test positive Straight Leg Raise: positive at 30 degrees right side/ left side Gaenslen's Test positive Sacral spine : Severe tenderness over the Sacroiliac joint: right side / left side Range of motion: Flexion of the lumbar spine <60 degrees Range of motion: Extension of the lumbar spine <20 degrees Gaenslen's Test positive Denilson's Test positive Jagdish test: positive right side / left side Thigh Thrust Test Sacral Thrust Test Imaging: MRI without contrast of the cervical sine from 05/30/22 reviewed Assessment and plan: Chronic neck pain secondary to cervical degenerative disc disease , spondylosis with facet arthropathy without myelopathy Recommendation of OMAR C6-C7 #1. May need a series of injections, up to 3 within a 6 mo period, for optimal pain relief. Risks, benefits of procedure discussed and pt verbalized understanding. Denies anticoagulant use and admits to medical history of diabetes. Protocol for discontinuation/ continuation of meds jean procedure discussed. All patient questions answered I have spent less than 30 minutes on patient care today. Dr Mitchell was available by phone for the evaluation of this patient. The time was used to r eview the medical records including relevant urine studies and Prescription history (MAPs), review of the available imaging, evaluation and examination of the patient, coordination of care with the medical staff and if applicable referring physicians, as well as creation of the medical record - Pain Location Right Lower Neck Non-Pharmacological Interventions: Ice, Inactivity, Position/Reposition Pharmacological Interventions: PRN Medication, Topical Medication PQRS Narrative: Smoking Status Never smoker Pain Intensity [Right Lower 9 Neck] Scale Used Numeric (1 - 10) Hx Alcohol Use (MH) Yes Home Medications: Ambulatory Orders Atorvastatin [Lipitor] 40 mg PO HS 02/17/16 Levothyroxine Sodium [Synthroid] 50 mcg PO HS 02/17/16 hydroCHLOROthiazide 12.5 mg PO DAILY 02/17/16 DULoxetine HCL [Cymbalta] 60 mg PO BID 08/07/19 metFORMIN HCL [Glucophage] 1,000 mg PO BID 08/07/19 Esomeprazole Magnesium [NexIUM 24Hr] 20 mg PO DAILY PRN 02/17/21 Ferrous Sulfate [Feosol] 325 mg PO DAILY 02/17/21 Montelukast Sodium [Singulair] 10 mg PO HS 02/17/21 Pregabalin [Lyrica] 150 mg PO BID 02/17/21 busPIRone HCl [Buspar] 5 mg PO BID 02/17/21 Controlled Substance Measures - Controlled Substance Measures Is patient prescribed a controlled substance at discharge?: No
== END ==
LOC: PNWHC3 08:44
PROVIDERS: ATTEND Specialist
DX: M47.812 Spondylosis without myelopathy or radiculopathy, cervical region (principal); M50.30 Other cervical disc degeneration, unspecified cervical region; G89.29 Other chronic pain; E66.9 Obesity, unspecified; Z68.31 Body mass index [BMI] 31.0-31.9, adult
CPT/HCPCS: 99211

== ENCOUNTER → 2022-06-13 | Outpatient (CLI) | payer MEDICARE ==
--- NOTE | 2022-06-13 09:54 | XR ---
EXAMINATION TYPE: XR foot limited LT DATE OF EXAM: 06/13/2022 CLINICAL HISTORY: Sprain injury with pain. TECHNIQUE: Frontal and lateral images of the left foot are obtained. COMPARISON: None FINDINGS: There is no acute displaced fracture evident in the left foot. The joint spaces in the le ft foot appear within normal limits. The overlying soft tissue appears unremarkable. IMPRESSION: There is no acute fracture or dislocation in the left foot.
== END | disposition home or self-care (01) ==
LOC: RADXRMAIN 09:32
PROVIDERS: ATTEND Physician Assistant Medical
DX: S93.692A Other sprain of left foot, initial encounter (principal)

== ENCOUNTER → 2023-03-31 | Day surgery (SDC) | payer MEDICARE ==
[2023-03-28 13:49] VITALS: BMI 30.5
[~2023-03-31] MED LIST changes: +BUPIVACAINE (PF) 0.25% 30 ML VIAL MISCELLANE ONE; +DEXAMETHASONE SOD PHOSPHATE 4 MG/ML 1 ML VIAL IV ONE; +HYDROmorphone 0.5 MG/0.5 ML SYRINGE IVP ONE; +HYDROmorphone 0.5 MG/0.5 ML SYRINGE IVP PRN; +LIDOCAINE 1% (10MG/ML) FOR IV START INTRADERMA PRN; -LIDOCAINE 1% 20 ML VIAL (10MG/ML) FOR IV START INTRADERMA ONE; -LIDOCAINE 1% INJ 10MG/ML (20 ML MDV) ONE; +LIDOCAINE 2% INJ 20 MG/ML (2 ML VIAL) ONE; +MIDAZOLAM 2 MG/2 ML VIAL IV PRN; +MIDAZOLAM 2 MG/2 ML VIAL ONE; +ONDANSETRON 4 MG/2 ML VIAL IVP ONE; +ceFAZolin 1,000 MG in SODIUM CHLORIDE 0.9% 1,000 ML IRRIGATION ONE; +fentaNYL (PF) 50 MCG/ML 2 ML AMP ONE
[2023-03-31 10:25] LABS: Glucose,Whole Blood 85 mg/dL (70-110)
--- NOTE | 2023-03-31 11:44 | P.OP ---
Date of Procedure: 03/31/23 Preoperative Diagnosis: Displaced fracture proximal phalanx right second toe Postoperative Diagnosis: Same Procedure(s) Performed: Partial excision of bone proximal phalanx right second digit Implants: None Anesthesia: MAC, local Surgeon: Brandon Contreras Estimated Blood Loss (ml): 1 Pathology: none sent Condition: stable Disposition: PACU Description of Procedure: The patient was brought into the operative room and placed on table in supine position. Timeout was taken to confirm correct patient identifiers, correct laterally of surgery, and correct procedure. Once all staff in the room were in agreement timeout, the patient was placed under IV sedation anesthesia. A well- padded tourniquet was placed on the right ankle. 0.25% Marcaine was injected as a right forefoot block. The right foot was then prepped and draped usual manner. The right foot was exsanguinated and the tourniquet inflated to 250 mmHg. Tension was directed over the dorsal medial aspect of the second metatarsal phalangeal joint, where a 2 cm incision was made parallel to the digit. The incision was deepened down to the saphenous tissue careful to identify, avoid, and retract any neurovascular structures and cauterize any bleeding vessels. Dissection was bluntly continued down to the level of the metatarsal phalangeal joint capsule where a scalpel was then used to incise Reflected off the Base of the Proximal Phalanx. The Fracture Line Was Visible at the Medial Aspect of the Base of the Proximal Phalanx. The Fracture Fragment Was and There Was Interposing tissue that was removed from between the fracture fragments. An attempted reduction was done with both forceps as well as a K wire. However the piece fragmented was not able to be reduced. Therefore the decision was made to excise the fracture fragment. A scalpel was used to dissected free from surrounding soft tissue and was excised in total. Fluoroscopic imaging confirmed complete removal the bone. The wound is then thoroughly irrigated with anatomic saline. The capsule at the medial aspect of the first metatarsal phalangeal joint was closed with 3-0 Vicryl. Subcutaneous closure was done with 4-0 Monocryl. And skin closure was done with 4-0 Stratafix In a running subcuticular manner. Dermal glue was applied Lunder dry. Nonadherent gauze and a dry sterile dressing applied to the right foot. The tourniquet was released and capillary refill return to all digits on the right foot. Anesthesia was reversed and the patient was taken recovery with vital signs stable.
[2023-03-31 11:55] VITALS: TEMP 97.4
[2023-03-31 13:05] VITALS: BP 115/82; PULSE 80; RESP 14
== END | disposition home or self-care (01) ==
LOC: OR 09:14
PROVIDERS: ATTEND Podiatrist
DX: S92.911A Unspecified fracture of right toe(s), initial encounter for closed fracture (principal); X58.XXXA Exposure to other specified factors, initial encounter; E78.5 Hyperlipidemia, unspecified; E03.9 Hypothyroidism, unspecified; Z90.89 Acquired absence of other organs; Z90.710 Acquired absence of both cervix and uterus; Z90.49 Acquired absence of other specified parts of digestive tract; Z82.49 Family history of ischemic heart disease and other diseases of the circulatory system; Z83.3 Family history of diabetes mellitus; Z79.899 Other long term (current) drug therapy
CPT/HCPCS: 28124; J2250; J1100; J0690 ×2; J2405; J3010; J2704; J1170; J2001

== ENCOUNTER → 2024-07-01 | Outpatient (CLI) | payer MEDICARE, OTHER ==
--- NOTE | 2024-07-01 16:20 | BD ---
EXAMINATION TYPE: Axial Bone Density DATE OF EXAM: 07/01/2024 CLINICAL HISTORY: 68 years old Female. ICD-10 CODE: Z78.0 Postmenopausal Height: 63 Weight: 180.2 FRAX RISK QUESTIONS: Alcohol (3 or more units per day): no Family History (Parent hip fracture): father Glucocorticoids (More than 3mos): no (Ex: prednisone, prednisolone, methylprednisolone, dexamethasone, and hydrocortisone). History of Fracture in Adulthood: yes Secondary Osteoporosis: 1. Type 1 Diabetes: no 2. Hyperthyroidism: no 3. Menopause before 45: yes 4. Malnutrition: no 5. Chronic liver disease: fatty liver Rheumatoid Arthritis: no Current Tobacco Use: no RISK FACTORS HISTORY OF: Hip Fracture (Right/Left): no Spine Fracture: no History of Wrist Fracture: Lt Wrist When: age 25 Surgery to Spine/Hip(right/left)/Wrist (right/left): lt Wrist age 25 MEDICATIONS: Thyroid Medications: Levothyroxine How Long: past 5 years Osteoporosis Medications: no EXAM MEASUREMENTS: Bone mineral densitometry was performed using the [employer] System. Bone mineral density as measured about the Lumbar spine is: ----- L1-L4(G/cm2): 1.051 T Score Values are as follows: ----- L1: -2.7 ----- L2: -1.7 ----- L3: -0.4 ----- L4: 0.1 ----- L1-L4: -1.1 Z Score Values are as follows: ----- L1: -1.6 ----- L2: -0.6 ----- L3: 0.7 ----- L4: 1.2 ----- L1-L4: 0.0 Bone mineral density has: decreased -7.0 % since study of: 03/18/2022 Bone mineral density about the R hip (g/cm2): 0.863 Bone mineral density about the L hip (g/cm2): 0.876 T Score values are as follows: -----R Neck: -2.4 -----L Neck: -2.1 -----R Total: -1.2 -----L Total: -1.0 Z Score values are as follows: -----R Neck: -1.1 -----L Neck: -0.9 -----R Total: -0.2 -----L Total: -0.1 Bone mineral density has: DECREASED -8.9 % since study of: 03/18/2022 FRAX%s: The graph provided illustrates a 21.0% chance for a major osteoporotic fx and a 4.7% chance f or the hips probability for fx in 10 years time. IMPRESSION: Osteopenia (T Score between -2.5 and -1). Note that measurements are bordering on osteopenia at the r ight hip. There is slightly increased risk of fracture and the patient may be considered for treatment. Re-Screen 2-5 years. NOTE: T-SCORE=SD OF THE YOUNG ADULT MEAN. [facility], , 07/01/2024 4:18 PM
--- NOTE | 2024-07-02 19:09 | MM ---
Reason for Exam: Screening (asymptomatic). Last mammogram was performed 2 year(s) and 3 month(s) ago. Patient History: Menarche at age 15. First Full-Term at age 16. Left ovary removed at age 29. Right ovary removed at age 29. Hysterectomy at age 28. Postmenopausal. Estrogen for 20 years from age 28 until age 48. Benign Excisional Biopsy on the left side. Maternal cousin had breast cancer. Risk Values: Marlene 5 year model risk: 1.3%. NCI Lifetime model risk: 4.3%. Prior Study Comparison: 06/04/2008 Bilateral Screening Mammogram, [facility]. 01/28/2016 Bilateral Screening Mammogram, [facility]. 03/18/2022 Bilateral MG 3D screening mammo w/cad, [facility]. Tissue Density: There are scattered areas of fibroglandular density. Findings: Analyzed By CAD. There is no suspicious group of microcalcifications or new suspicious mass in either breast. Overall Assessment: Negative, BI-RAD 1 Management: Screening Mammogram of both breasts in 1 year. . Patient should continue monthly self-breast exams. A clinical breast exam by your physician is recommended on an annual basis. This exam should not preclude additional follow-up of suspicious palpable abnormalities. Note on Marlene scores and lifetime risk: 1. A Marlene score greater than 3% is considered moderate risk. If this is the case, consider specialist referral to assess eligibility for a risk reducing agent. 2. If overall lifetime risk for the development of breast cancer is 20% or higher, the patient may qualify for future screening with alternating mammogram and breast MRI. [facility], , 07/02/2024 7:06 PM. Electronically signed and approved by: Fermin Root M.D. Radiologist
== END | disposition home or self-care (01) ==
LOC: RADMAMWWP 09:17
PROVIDERS: ATTEND Family Medicine
CPT/HCPCS: 77063; 77067; 77080